=== PATIENT | male | born 1950 | race Two or more races ===

== ENCOUNTER 2017-07-06 12:33 | Outpatient (CLI) | payer OTHER | END 2017-07-06 12:40 | disposition home or self-care (01) | LOC: RAD 12:33 | DX: M25.551 Pain in right hip (principal); M25.552 Pain in left hip ==

== ENCOUNTER → 2017-07-19 | Outpatient (CLI) | payer OTHER ==
[~2017-07-19] VITALS: Ht 177.8 cm; Wt 74.8 kg
[~2017-07-19] MED LIST: DICLOFENAC POTA50 MG PO; DIOVAN160 M1 PO
== END | disposition home or self-care (01) ==
LOC: LAB 06:00 → SURH 07-25 09:15 → EDSTATUS 07-25 09:15
DX: R07.89 Other chest pain (principal); D68.8 Other specified coagulation defects; E78.2 Mixed hyperlipidemia; N39.0 Urinary tract infection, site not specified; I10 Essential (primary) hypertension; Z01.810 Encounter for preprocedural cardiovascular examination; Z01.812 Encounter for preprocedural laboratory examination

== ENCOUNTER 2017-07-20 11:30 | Outpatient (CLI) | payer OTHER ==
[~2017-07-20 11:30] MED LIST changes: -DICLOFENAC POTA50 MG PO
[2017-07-21] MEDS ORDERED: DICLOFENAC POTA50 MG PO (07:54)
== END 2017-07-20 11:35 | disposition home or self-care (01) ==
LOC: LAB 11:30
DX: D68.8 Other specified coagulation defects (principal); D64.89 Other specified anemias

== ENCOUNTER 2017-07-20 15:31 | Inpatient (IN) | payer OTHER ==
[~2017-07-20] VITALS: Ht 177.8 cm; Wt 74.8 kg
[2017-07-21] MEDS ORDERED: DICLOFENAC POTA50 MG PO (07:54)
== END 2017-07-28 14:37 | disposition home or self-care (01) | DRG 375 ==
LOC: ER 15:31 → MEDJ 18:28 → SEC-K 18:28 → MEDJ 23:47
PROC: 30233N1 Transfusion of Nonautologous Red Blood Cells into Peripheral Vein, Percutaneous Approach (ICD-10-PCS; 2017-07-20)
PROC: B246ZZZ Ultrasonography of Right and Left Heart (ICD-10-PCS; 2017-07-24)
PROC: 0DB98ZX Excision of Duodenum, Via Natural or Artificial Opening Endoscopic, Diagnostic (ICD-10-PCS; principal; 2017-07-25)
PROC: 0DB68ZX Excision of Stomach, Via Natural or Artificial Opening Endoscopic, Diagnostic (ICD-10-PCS; 2017-07-25)
PROC: 0DBP8ZX Excision of Rectum, Via Natural or Artificial Opening Endoscopic, Diagnostic (ICD-10-PCS; 2017-07-26)
PROC: 0DBL8ZX Excision of Transverse Colon, Via Natural or Artificial Opening Endoscopic, Diagnostic (ICD-10-PCS; 2017-07-26)
PROC: 0DBN8ZX Excision of Sigmoid Colon, Via Natural or Artificial Opening Endoscopic, Diagnostic (ICD-10-PCS; 2017-07-26)
PROC: 0DBK8ZX Excision of Ascending Colon, Via Natural or Artificial Opening Endoscopic, Diagnostic (ICD-10-PCS; 2017-07-26)
PROC: 0W3P8ZZ Control Bleeding in Gastrointestinal Tract, Via Natural or Artificial Opening Endoscopic (ICD-10-PCS; 2017-07-26)
PROC: BW28Y0Z Computerized Tomography (CT Scan) of Head using Other Contrast, Unenhanced and Enhanced (ICD-10-PCS; 2017-07-26)
PROC: BW25Y0Z Computerized Tomography (CT Scan) of Chest, Abdomen and Pelvis using Other Contrast, Unenhanced and Enhanced (ICD-10-PCS; 2017-07-26)
DX: C18.4 Malignant neoplasm of transverse colon (principal); K92.2 Gastrointestinal hemorrhage, unspecified; D50.0 Iron deficiency anemia secondary to blood loss (chronic); R55 Syncope and collapse; I50.83 High output heart failure; I10 Essential (primary) hypertension; E78.4 Other hyperlipidemia; G31.89 Other specified degenerative diseases of nervous system; K63.5 Polyp of colon

== ENCOUNTER 2017-08-23 16:01 | Inpatient (IN) | payer OTHER ==
[~2017-08-23] VITALS: Ht 167.6 cm; Wt 68.0 kg
[~2017-08-23 16:01] MED LIST changes: +DICLOFENAC POTA50 MG PO
== END 2017-09-04 19:58 | disposition home or self-care (01) | DRG 330 ==
LOC: SURH 08-29 05:30 → O/R 08-29 05:30 → SURH 08-29 13:55 → O/R 08-29 16:00 → SURH 09-04 19:58
PROVIDERS: Colon & Rectal Surgery
PROC: 0DTP4ZZ Resection of Rectum, Percutaneous Endoscopic Approach (ICD-10-PCS; 2017-08-29)
PROC: 07TC4ZZ Resection of Pelvis Lymphatic, Percutaneous Endoscopic Approach (ICD-10-PCS; 2017-08-29)
PROC: 0DBU4ZZ Excision of Omentum, Percutaneous Endoscopic Approach (ICD-10-PCS; 2017-08-29)
PROC: 0DTE4ZZ Resection of Large Intestine, Percutaneous Endoscopic Approach (ICD-10-PCS; principal; 2017-08-29 10:00)
PROC: 3E0F7GC Introduction of Other Therapeutic Substance into Respiratory Tract, Via Natural or Artificial Opening (ICD-10-PCS; 2017-08-31)
PROC: 4A033R1 Measurement of Arterial Saturation, Peripheral, Percutaneous Approach (ICD-10-PCS; 2017-09-01)
DX: C18.4 Malignant neoplasm of transverse colon (principal); J95.89 Other postprocedural complications and disorders of respiratory system, not elsewhere classified; J98.11 Atelectasis; B37.0 Candidal stomatitis; J45.31 Mild persistent asthma with (acute) exacerbation; D62 Acute posthemorrhagic anemia; I10 Essential (primary) hypertension; E78.4 Other hyperlipidemia

== ENCOUNTER 2017-09-19 10:07 | Outpatient (CLI) | payer OTHER | END 2017-09-19 10:19 | disposition home or self-care (01) | LOC: NUCLEAR 10:07 | DX: C19 Malignant neoplasm of rectosigmoid junction (principal); Z86.010 Personal history of colon polyps; D50.0 Iron deficiency anemia secondary to blood loss (chronic) | CPT/HCPCS: 78816; A9552 ==

== ENCOUNTER → 2017-09-27 16:37 | Outpatient (CLI) | payer OTHER | END | disposition home or self-care (01) | LOC: LAB 16:37 | DX: C19 Malignant neoplasm of rectosigmoid junction (principal); Z86.010 Personal history of colon polyps; D50.0 Iron deficiency anemia secondary to blood loss (chronic) ==

== ENCOUNTER 2017-10-31 08:01 | Outpatient (CLI) | payer OTHER | END 2017-10-31 08:56 | disposition home or self-care (01) | LOC: RAD 08:01 | DX: C19 Malignant neoplasm of rectosigmoid junction (principal); Z86.010 Personal history of colon polyps; D50.0 Iron deficiency anemia secondary to blood loss (chronic); R91.8 Other nonspecific abnormal finding of lung field; R97.8 Other abnormal tumor markers; R79.89 Other specified abnormal findings of blood chemistry; D51.8 Other vitamin B12 deficiency anemias; R94.5 Abnormal results of liver function studies ==

== ENCOUNTER 2017-11-14 10:48 | Outpatient (CLI) | payer OTHER ==
[2017-11-14] MEDS ORDERED: IMODIUM A-D2 MG PO (15:00)
[2017-11-14] MEDS ORDERED: INTEGRA PLUS C1 EACH PO (15:00)
== END 2017-11-14 10:54 | disposition home or self-care (01) ==
LOC: EKG 10:48
DX: C19 Malignant neoplasm of rectosigmoid junction (principal); Z01.810 Encounter for preprocedural cardiovascular examination

== ENCOUNTER → 2017-11-17 | Day surgery (SDC) | payer OTHER ==
[~2017-11-17] MED LIST changes: +IMODIUM A-D2 MG PO; +INTEGRA PLUS C1 EACH PO
== END | disposition home or self-care (01) ==
LOC: CIR.AMB 05:57
DX: C20 Malignant neoplasm of rectum (principal)
CPT/HCPCS: 36561; C1751

== ENCOUNTER → 2018-06-29 | Outpatient (CLI) | payer OTHER | END | disposition home or self-care (01) | LOC: NUCLEAR 08:04 | DX: Z08 Encounter for follow-up examination after completed treatment for malignant neoplasm (principal); C19 Malignant neoplasm of rectosigmoid junction; Z86.010 Personal history of colon polyps; D50.0 Iron deficiency anemia secondary to blood loss (chronic); R91.8 Other nonspecific abnormal finding of lung field | CPT/HCPCS: 78815; A9552 ==

== ENCOUNTER 2018-09-11 10:51 | Emergency (ER) | payer OTHER ==
[~2018-09-11] VITALS: Ht 175.3 cm; Wt 68.9 kg
[2018-09-11] MEDS ORDERED: LOPRESSOR25 MG (11:03)
[2018-09-11] MEDS ORDERED: FUSION PLUS CA1 EACH (11:04)
== END 2018-09-11 19:32 | disposition home or self-care (01) ==
LOC: ER 10:51
DX: N39.0 Urinary tract infection, site not specified (principal); R31.0 Gross hematuria

== ENCOUNTER 2018-10-24 08:58 | Outpatient (CLI) | payer OTHER ==
[~2018-10-24 08:58] MED LIST changes: +FUSION PLUS CA1 EACH; +LOPRESSOR25 MG
== END 2018-10-24 09:05 | disposition home or self-care (01) ==
LOC: TOM 08:58
DX: C19 Malignant neoplasm of rectosigmoid junction (principal); Z86.010 Personal history of colon polyps; D50.0 Iron deficiency anemia secondary to blood loss (chronic); R91.8 Other nonspecific abnormal finding of lung field
CPT/HCPCS: 71260; 74178; Q9965

== ENCOUNTER → 2019-06-04 | Outpatient (CLI) | payer OTHER | END | disposition home or self-care (01) | LOC: TOM 08:11 | DX: C19 Malignant neoplasm of rectosigmoid junction (principal); D50.0 Iron deficiency anemia secondary to blood loss (chronic); R91.8 Other nonspecific abnormal finding of lung field; Z86.010 Personal history of colon polyps | CPT/HCPCS: 71260; 74177; Q9965 ==

== ENCOUNTER → 2019-08-29 | Outpatient (CLI) | payer OTHER | END | disposition home or self-care (01) | LOC: MRI 10:01 | DX: C19 Malignant neoplasm of rectosigmoid junction (principal) | CPT/HCPCS: 72197; A9575 ==

== ENCOUNTER 2021-02-26 07:48 | Outpatient (CLI) | payer OTHER | END 2021-02-26 08:11 | disposition home or self-care (01) | LOC: MRI 07:48 | PROVIDERS: ATTEND Internal Medicine Hematology & Oncology | DX: R10.84 Generalized abdominal pain (principal); C19 Malignant neoplasm of rectosigmoid junction; C78.01 Secondary malignant neoplasm of right lung; R97.0 Elevated carcinoembryonic antigen [CEA]; D50.0 Iron deficiency anemia secondary to blood loss (chronic); R91.8 Other nonspecific abnormal finding of lung field | CPT/HCPCS: 74183; A9575; 74182 ==

== ENCOUNTER 2023-06-28 14:11 | Inpatient (IN) | payer OTHER ==
[~2023-06-28] VITALS: Ht 175.3 cm; Wt 59.0 kg
[~2023-06-28 14:11] MED LIST changes: +ACETAMINOPHEN650 M2 PO; +CIPRO500 MG PO; +DIOVAN HCT 80-11 TAB PO; +INTEGRA CAPSUL1 EACH; +INTESTINEX680 M1 PO; +LEVSIN0.125 MG PO; +LIPITOR20 MG; +METRONIDAZOLE500 MG PO; +OMEPRAZOLE40 MG; +PEPCID AC20 MG PO; +QUESTRAN LIGHT210 GM; +TOPROL XL25 M1; +TRAMADOL HCL50 MG PO
[2023-06-28 16:13] LABS: BILIRUBIN TOTAL 0.35 mg/dL (0.3-1.2); BILIRUBIN,CONJUGATED 0.14 mg/dL (0.0-0.2); BILIRUBIN,UNCONJUGATED 0.21 mg/dL (0.0-0.6); CALCIUM 8.6 mg/dL (8.5-10.1); CREATININE SERUM 0.58 mg/dL (0.70-1.30); GFR 137.33; POTASSIUM 4.25 mEq/L (3.5-5.1); TOTAL PROTEIN 6.1 gm/dL (6.4-8.2)
[2023-06-28 16:18] LABS: HEMATOCRIT 23.7 % (39.0-48.0); MEAN CELL VOLUME 81.9 fL (80.0-100.00); MEAN CORPUSCULAR HGB CONC 32.3 g/dl (32.0-36.0); PLATELET COUNT 434 K/uL (150-450); RED CELL DISTRIBUTION WIDTH 17.8 % (11.5-14.5)
[2023-06-28 16:20] LABS: MEAN CORPUSCULAR HEMOGLOBIN 26.5 pg (27.00-32.0)
[2023-06-28 16:22] LABS: HEMOGLOBIN 7.7 g/dL (13-16.00)
[2023-06-28 22:40] LABS: D DIMER 10.67 MG/L
[2023-06-28 23:08] LABS: PH,URINE 6.5 (5.0-8.0); URINE APPEARANCE Clear; URINE BILIRRUBIN Negative (NEGATIVE); URINE BLOOD Negative; URINE COLOR Yellow; URINE GLUCOSE Negative (NEGATIVE); URINE LEUKOCYTE Negative; URINE NITRATE Negative; URINE PROTEIN Negative (NEGATIVE); URINE UROBILINOGEN 0.2 E.U./dl
[2023-06-28 23:11] LABS: URINE BACTERIA 110.8 uL (0.0-1933); URINE EPITHELIAL CELLS 6.7 uL (0.0-38.8); URINE RBC 9.6 uL (0.0-20.8); URINE WBC 17.1 uL (0.0-23.2)
[2023-06-29 08:02] LABS: ob POSITIVE (NEGATIVE)
[2023-06-30 07:07] LABS: HEMATOCRIT 32.3 % (39.0-48.0); HEMOGLOBIN 10.7 g/dL (13-16.00); MEAN CELL VOLUME 82.5 fL (80.0-100.00); MEAN CORPUSCULAR HEMOGLOBIN 27.5 pg (27.00-32.0); MEAN CORPUSCULAR HGB CONC 33.3 g/dl (32.0-36.0); PLATELET COUNT 433 K/uL (150-450); RED BLOOD COUNT 3.91 M/uL (4.00-6.00); RED CELL DISTRIBUTION WIDTH 16.6 % (11.5-14.5)
[2023-06-30 07:25] LABS: ALBUMIN 2.2 gm/dL (3.4-5.0); BILIRUBIN TOTAL 0.6 mg/dL (0.3-1.2); CALCIUM 8.4 mg/dL (8.5-10.1); CREATININE SERUM 0.54 mg/dL (0.70-1.30); GFR 149.14; GLOBULINA 3.9 G/DL (2.4-3.5); POTASSIUM 3.07 mEq/L (3.5-5.1); TOTAL PROTEIN 6.1 gm/dL (6.4-8.2)
[2023-07-01 12:04] LABS: CA 125 83.5 U/mL (Not Estab.); CA 19-9 < 2 U/mL (0-35)
[2023-07-02 07:09] LABS: BILIRUBIN TOTAL 0.36 mg/dL (0.3-1.2); CALCIUM 8.3 mg/dL (8.5-10.1); CREATININE SERUM 0.42 mg/dL (0.70-1.30); GFR 199.32; GLOBULINA 3.1 G/DL (2.4-3.5); MAGNESIUM 1.8 mg/dL (1.8-2.4); POTASSIUM 4.02 mEq/L (3.5-5.1); TOTAL PROTEIN 5.1 gm/dL (6.4-8.2)
[2023-07-02 07:48] LABS: HEMATOCRIT 28.6 % (39.0-48.0); HEMOGLOBIN 9.4 g/dL (13-16.00); MEAN CELL VOLUME 83.9 fL (80.0-100.00); MEAN CORPUSCULAR HEMOGLOBIN 27.7 pg (27.00-32.0); PLATELET COUNT 410 K/uL (150-450); RED BLOOD COUNT 3.41 M/uL (4.00-6.00); RED CELL DISTRIBUTION WIDTH 16.8 % (11.5-14.5)
[2023-07-03 06:53] LABS: HEMATOCRIT 26.5 % (39.0-48.0); MEAN CELL VOLUME 87.9 fL (80.0-100.00); MEAN CORPUSCULAR HEMOGLOBIN 28.2 pg (27.00-32.0); MEAN CORPUSCULAR HGB CONC 32.1 g/dl (32.0-36.0); PLATELET COUNT 386 K/uL (150-450); RED BLOOD COUNT 3.01 M/uL (4.00-6.00); RED CELL DISTRIBUTION WIDTH 17.5 % (11.5-14.5)
[2023-07-03 07:14] LABS: ALBUMIN 1.8 gm/dL (3.4-5.0); BILIRUBIN TOTAL 0.4 mg/dL (0.3-1.2); BILIRUBIN,CONJUGATED 0.17 mg/dL (0.0-0.2); BILIRUBIN,UNCONJUGATED 0.23 mg/dL (0.0-0.6); CALCIUM 8.3 mg/dL (8.5-10.1); CHOL HDL RATIO 5.8 (0-5.0); CREATININE SERUM 0.5 mg/dL (0.70-1.30); GFR 162.99; GLOBULINA 2.6 G/DL (2.4-3.5); PHOSPHOROUS 5.3 mg/dL (2.5-4.9); POTASSIUM 5.27 mEq/L (3.5-5.1); TOTAL PROTEIN 4.4 gm/dL (6.4-8.2)
[2023-07-03 07:28] LABS: HEMOGLOBIN 8.5 g/dL (13-16.00)
[2023-07-03 07:31] LABS: INR 1.1; PARTIAL THROMBOPLASTIN TIME 29.3 SECONDS (22.0-34.0); PROTHROMBIN TIME 11.5 SECONDS (9.0-11.5)
[2023-07-03 10:37] LABS: BILIRUBIN TOTAL 0.53 mg/dL (0.3-1.2); CALCIUM 8.1 mg/dL (8.5-10.1); CREATININE SERUM 0.48 mg/dL (0.70-1.30); GFR 170.85; GLOBULINA 2.9 G/DL (2.4-3.5); POTASSIUM 4.13 mEq/L (3.5-5.1); TOTAL PROTEIN 4.9 gm/dL (6.4-8.2)
[2023-07-03 14:59] LABS: UREA CLEARANCE 27.7 ML/MIN
[2023-07-03 15:43] LABS: ob POSITIVE (NEGATIVE)
[2023-07-04 12:10] LABS: HEMATOCRIT 33.6 % (39.0-48.0); HEMOGLOBIN 11.5 g/dL (13-16.00); MEAN CORPUSCULAR HEMOGLOBIN 28.6 pg (27.00-32.0); MEAN CORPUSCULAR HGB CONC 34.1 g/dl (32.0-36.0); PLATELET COUNT 363 K/uL (150-450); RED CELL DISTRIBUTION WIDTH 16.3 % (11.5-14.5)
[2023-07-05 06:47] LABS: HEMATOCRIT 36.1 % (39.0-48.0); MEAN CELL VOLUME 84.8 fL (80.0-100.00); MEAN CORPUSCULAR HGB CONC 33.1 g/dl (32.0-36.0); PLATELET COUNT 378 K/uL (150-450); RED BLOOD COUNT 4.26 M/uL (4.00-6.00); RED CELL DISTRIBUTION WIDTH 16.8 % (11.5-14.5)
[2023-07-05 07:24] LABS: ALBUMIN 2.3 gm/dL (3.4-5.0); BILIRUBIN TOTAL 0.75 mg/dL (0.3-1.2); CALCIUM 8.6 mg/dL (8.5-10.1); CREATININE SERUM 0.55 mg/dL (0.70-1.30); GFR 146.02; MAGNESIUM 1.9 mg/dL (1.8-2.4); POTASSIUM 4.09 mEq/L (3.5-5.1); TOTAL PROTEIN 5.3 gm/dL (6.4-8.2)
[2023-07-06 14:11] LABS: HEMATOCRIT 37.8 % (39.0-48.0); HEMOGLOBIN 12.6 g/dL (13-16.00); MEAN CELL VOLUME 85.7 fL (80.0-100.00); MEAN CORPUSCULAR HEMOGLOBIN 28.5 pg (27.00-32.0); MEAN CORPUSCULAR HGB CONC 33.2 g/dl (32.0-36.0); PLATELET COUNT 428 K/uL (150-450); RED BLOOD COUNT 4.41 M/uL (4.00-6.00)
[2023-07-07 06:19] LABS: HEMATOCRIT 39.4 % (39.0-48.0); MEAN CELL VOLUME 84.3 fL (80.0-100.00); MEAN CORPUSCULAR HEMOGLOBIN 27.9 pg (27.00-32.0); MEAN CORPUSCULAR HGB CONC 33.1 g/dl (32.0-36.0); PLATELET COUNT 431 K/uL (150-450); RED BLOOD COUNT 4.67 M/uL (4.00-6.00); RED CELL DISTRIBUTION WIDTH 16.9 % (11.5-14.5)
[2023-07-09 11:43] LABS: HEMATOCRIT 37.6 % (39.0-48.0); HEMOGLOBIN 12.3 g/dL (13-16.00); MEAN CORPUSCULAR HEMOGLOBIN 28.1 pg (27.00-32.0); MEAN CORPUSCULAR HGB CONC 32.7 g/dl (32.0-36.0); PLATELET COUNT 370 K/uL (150-450); RED BLOOD COUNT 4.37 M/uL (4.00-6.00)
[2023-07-10 07:45] LABS: HEMOGLOBIN 11.1 g/dL (13-16.00); MEAN CELL VOLUME 85.6 fL (80.0-100.00); MEAN CORPUSCULAR HEMOGLOBIN 27.9 pg (27.00-32.0); MEAN CORPUSCULAR HGB CONC 32.6 g/dl (32.0-36.0); PLATELET COUNT 347 K/uL (150-450); RED BLOOD COUNT 3.97 M/uL (4.00-6.00); RED CELL DISTRIBUTION WIDTH 16.4 % (11.5-14.5)
[2023-07-10 08:35] LABS: ALBUMIN 2.6 gm/dL (3.4-5.0); ALKALINE PHOSPHATASE 125 U/L (50-136); ALT/SGPT 19 U/L (12-78); ANION GAP 10 (10.0-20.0); AST/SGOT 19 U/L (15-37); BILIRUBIN TOTAL 0.36 mg/dL (0.3-1.2); BILIRUBIN,CONJUGATED < 0.10 mg/dL (0.0-0.2); BILIRUBIN,UNCONJUGATED 0.26 mg/dL (0.0-0.6); BLOOD UREA NITROGEN 13 mg/dL (7-18); BUN CREA RATIO 19 (7.0-25.0); CALCIUM 8.9 mg/dL (8.5-10.1); CARBON DIOXIDE 31 mEq/L (21-32); CHLORIDE 102 mmol/L (98-107); CHOL HDL RATIO 4.6 (0-5.0); CHOLESTEROL 166 mg/dL (0-200); CREATININE SERUM 0.69 mg/dL (0.70-1.30); GFR 112.39; GLOBULINA 3.3 G/DL (2.4-3.5); GLUCOSE FASTING 102 mg/dL (65-100); HDL 36 mg/dl (40-60); LDL 93 mg/dl (0-130); OSMOLALITY SERUM 276 MOSM/KG (275-295); POTASSIUM 4.56 mEq/L (3.5-5.1); SODIUM 138 mmol/L (136-145); TOTAL PROTEIN 5.9 gm/dL (6.4-8.2); TRIGLYCERIDES 186 mg/dL (0-150); VLDL 37 (0-39)
[2023-07-10 09:03] LABS: INR 1.04; PARTIAL THROMBOPLASTIN TIME 29.9 SECONDS (22.0-34.0); PROTHROMBIN TIME 10.9 SECONDS (9.0-11.5)
[2023-07-10 09:17] LABS: HEMATOCRIT 39.6 % (39.0-48.0); MEAN CELL VOLUME 86.2 fL (80.0-100.00); MEAN CORPUSCULAR HGB CONC 32.4 g/dl (32.0-36.0); PLATELET COUNT 372 K/uL (150-450); RED CELL DISTRIBUTION WIDTH 16.5 % (11.5-14.5)
[2023-07-10 09:25] LABS: HEMOGLOBIN 12.8 g/dL (13-16.00); MEAN CORPUSCULAR HEMOGLOBIN 27.8 pg (27.00-32.0)
[2023-07-11 06:53] LABS: HEMATOCRIT 34.7 % (39.0-48.0); HEMOGLOBIN 11.5 g/dL (13-16.00); MEAN CELL VOLUME 84.1 fL (80.0-100.00); MEAN CORPUSCULAR HEMOGLOBIN 27.9 pg (27.00-32.0); MEAN CORPUSCULAR HGB CONC 33.1 g/dl (32.0-36.0); PLATELET COUNT 315 K/uL (150-450); RED BLOOD COUNT 4.12 M/uL (4.00-6.00); RED CELL DISTRIBUTION WIDTH 16.7 % (11.5-14.5)
[2023-07-12 07:17] LABS: HEMATOCRIT 33.4 % (39.0-48.0); MEAN CELL VOLUME 85.5 fL (80.0-100.00); MEAN CORPUSCULAR HEMOGLOBIN 28.2 pg (27.00-32.0); PLATELET COUNT 278 K/uL (150-450); RED CELL DISTRIBUTION WIDTH 16.6 % (11.5-14.5)
[2023-07-13 06:52] LABS: HEMOGLOBIN 10.8 g/dL (13-16.00); MEAN CELL VOLUME 84.3 fL (80.0-100.00); MEAN CORPUSCULAR HEMOGLOBIN 27.5 pg (27.00-32.0); MEAN CORPUSCULAR HGB CONC 32.6 g/dl (32.0-36.0); PLATELET COUNT 256 K/uL (150-450); RED BLOOD COUNT 3.92 M/uL (4.00-6.00); RED CELL DISTRIBUTION WIDTH 16.6 % (11.5-14.5)
[2023-07-13 07:34] LABS: ALBUMIN 2.2 gm/dL (3.4-5.0); CALCIUM 8.4 mg/dL (8.5-10.1); CREATININE SERUM 0.53 mg/dL (0.70-1.30); GFR 152.39; MAGNESIUM 1.9 mg/dL (1.8-2.4); PHOSPHOROUS 3.4 mg/dL (2.5-4.9); POTASSIUM 4.46 mEq/L (3.5-5.1)
[2023-07-13 09:09] LABS: HEMOGLOBIN 10.8 g/dL (13-16.00); MEAN CELL VOLUME 85.9 fL (80.0-100.00); MEAN CORPUSCULAR HEMOGLOBIN 28.1 pg (27.00-32.0); MEAN CORPUSCULAR HGB CONC 32.7 g/dl (32.0-36.0); PLATELET COUNT 255 K/uL (150-450); RED BLOOD COUNT 3.85 M/uL (4.00-6.00); RED CELL DISTRIBUTION WIDTH 16.8 % (11.5-14.5)
[2023-07-14 08:56] LABS: HEMOGLOBIN 10.2 g/dL (13-16.00); MEAN CORPUSCULAR HEMOGLOBIN 27.6 pg (27.00-32.0); MEAN CORPUSCULAR HGB CONC 32.8 g/dl (32.0-36.0); PLATELET COUNT 242 K/uL (150-450); RED BLOOD COUNT 3.69 M/uL (4.00-6.00); RED CELL DISTRIBUTION WIDTH 16.9 % (11.5-14.5)
[2023-07-14 09:23] LABS: ALBUMIN 2.2 gm/dL (3.4-5.0); BILIRUBIN TOTAL 0.33 mg/dL (0.3-1.2); CALCIUM 8.2 mg/dL (8.5-10.1); CREATININE SERUM 0.53 mg/dL (0.70-1.30); GFR 152.39; MAGNESIUM 1.8 mg/dL (1.8-2.4); POTASSIUM 4.13 mEq/L (3.5-5.1); TOTAL PROTEIN 5.2 gm/dL (6.4-8.2)
[2023-07-15 13:30] LABS: HEMATOCRIT 32.6 % (39.0-48.0); HEMOGLOBIN 10.5 g/dL (13-16.00); MEAN CELL VOLUME 85.5 fL (80.0-100.00); MEAN CORPUSCULAR HEMOGLOBIN 27.6 pg (27.00-32.0); MEAN CORPUSCULAR HGB CONC 32.3 g/dl (32.0-36.0); PLATELET COUNT 254 K/uL (150-450); RED BLOOD COUNT 3.81 M/uL (4.00-6.00); RED CELL DISTRIBUTION WIDTH 16.6 % (11.5-14.5)
[2023-07-16 14:25] LABS: MEAN CELL VOLUME 85.8 fL (80.0-100.00); MEAN CORPUSCULAR HGB CONC 32.8 g/dl (32.0-36.0); PLATELET COUNT 186 K/uL (150-450); RED BLOOD COUNT 2.64 M/uL (4.00-6.00); RED CELL DISTRIBUTION WIDTH 16.1 % (11.5-14.5)
[2023-07-16 14:31] LABS: HEMATOCRIT 22.6 % (39.0-48.0); HEMOGLOBIN 7.4 g/dL (13-16.00)
[2023-07-17 10:45] LABS: HEMATOCRIT 36.7 % (39.0-48.0); HEMOGLOBIN 12.2 g/dL (13-16.00); MEAN CORPUSCULAR HEMOGLOBIN 27.5 pg (27.00-32.0); MEAN CORPUSCULAR HGB CONC 33.2 g/dl (32.0-36.0); PLATELET COUNT 257 K/uL (150-450); RED BLOOD COUNT 4.42 M/uL (4.00-6.00)
[2023-07-18 13:42] LABS: HEMATOCRIT 39.3 % (39.0-48.0); MEAN CELL VOLUME 83.9 fL (80.0-100.00); MEAN CORPUSCULAR HEMOGLOBIN 27.8 pg (27.00-32.0); MEAN CORPUSCULAR HGB CONC 33.2 g/dl (32.0-36.0); PLATELET COUNT 278 K/uL (150-450); RED BLOOD COUNT 4.68 M/uL (4.00-6.00); RED CELL DISTRIBUTION WIDTH 16.9 % (11.5-14.5)
[2023-07-18 14:18] LABS: ALBUMIN 2.5 gm/dL (3.4-5.0); BILIRUBIN TOTAL 0.51 mg/dL (0.3-1.2); CALCIUM 9.2 mg/dL (8.5-10.1); CREATININE SERUM 0.62 mg/dL (0.70-1.30); GFR 127.16; GLOBULINA 3.6 G/DL (2.4-3.5); MAGNESIUM 1.6 mg/dL (1.8-2.4); PHOSPHOROUS 2.9 mg/dL (2.5-4.9); POTASSIUM 3.77 mEq/L (3.5-5.1); TOTAL PROTEIN 6.1 gm/dL (6.4-8.2)
[2023-07-19 07:42] LABS: HEMATOCRIT 37.1 % (39.0-48.0); HEMOGLOBIN 12.2 g/dL (13-16.00); MEAN CELL VOLUME 82.8 fL (80.0-100.00); MEAN CORPUSCULAR HEMOGLOBIN 27.2 pg (27.00-32.0); MEAN CORPUSCULAR HGB CONC 32.9 g/dl (32.0-36.0); PLATELET COUNT 271 K/uL (150-450); RED BLOOD COUNT 4.48 M/uL (4.00-6.00); RED CELL DISTRIBUTION WIDTH 16.6 % (11.5-14.5)
[2023-07-19] MEDS ORDERED: PROTEINEX-18 LI30 ML PO (09:21)
[2023-07-19] MEDS ORDERED: SIMETHICONE125 M1 PO (09:22)
[2023-07-19] MEDS ORDERED: INTESTINEX680 M1 PO (09:22)
[2023-07-19] MEDS ORDERED: GABAPENTIN300 MG PO (09:24)
[2023-07-19] MEDS ORDERED: THORAZINE25 MG PO (09:24)
[2023-07-19] MEDS ORDERED: LIPITOR20 MG PO (09:25)
[2023-07-19] MEDS ORDERED: FUSION PLUS CA1 EACH PO (09:26)
[2023-07-19] MEDS ORDERED: B Complex PO (09:27)
[2023-07-19] MEDS ORDERED: Neurin-Sl Tablet Sl SL (09:27)
[2023-07-19] MEDS ORDERED: TOPROL XL25 M1 PO (09:27)
[2023-07-19] MEDS ORDERED: ZOLPIDEM TARTRAT5 MG PO (09:27)
[2023-07-20 07:34] LABS: HEMATOCRIT 37.4 % (39.0-48.0); HEMOGLOBIN 12.3 g/dL (13-16.00); MEAN CELL VOLUME 84.8 fL (80.0-100.00); MEAN CORPUSCULAR HEMOGLOBIN 27.9 pg (27.00-32.0); PLATELET COUNT 289 K/uL (150-450); RED BLOOD COUNT 4.42 M/uL (4.00-6.00); RED CELL DISTRIBUTION WIDTH 17.1 % (11.5-14.5)
[2023-07-20] MEDS ORDERED: TOPROL XL25 M1 PO (07:51)
[2023-07-20 12:21] LABS: MEAN CELL VOLUME 83.6 fL (80.0-100.00); PLATELET COUNT 199 K/uL (150-450); RED BLOOD COUNT 3.47 M/uL (4.00-6.00); RED CELL DISTRIBUTION WIDTH 16.7 % (11.5-14.5)
[2023-07-20 12:25] LABS: HEMOGLOBIN 9.6 g/dL (13-16.00); MEAN CORPUSCULAR HEMOGLOBIN 27.6 pg (27.00-32.0)
== END 2023-07-20 18:44 | disposition home or self-care (01) | DRG 336 ==
LOC: ICU-2 → ER 14:11 → SURH 19:25 → ICU-2 19:25 → SURH 19:25 → ICU 06-30 21:53 → SURH 07-05 12:09
PROVIDERS: Colon & Rectal Surgery; General Practice; Internal Medicine; Student in an Organized Health Care Education/Training Program; ADMIT Internal Medicine; ATTEND Internal Medicine
PROC: BW21YZZ Computerized Tomography (CT Scan) of Abdomen and Pelvis using Other Contrast (ICD-10-PCS; 2023-06-28)
PROC: BB24ZZZ Computerized Tomography (CT Scan) of Bilateral Lungs (ICD-10-PCS; 2023-06-28)
PROC: 02HV33Z Insertion of Infusion Device into Superior Vena Cava, Percutaneous Approach (ICD-10-PCS; 2023-06-29)
PROC: 3E0F7GC Introduction of Other Therapeutic Substance into Respiratory Tract, Via Natural or Artificial Opening (ICD-10-PCS; 2023-06-29)
PROC: 30233N1 Transfusion of Nonautologous Red Blood Cells into Peripheral Vein, Percutaneous Approach (ICD-10-PCS; 2023-06-29)
PROC: B246ZZZ Ultrasonography of Right and Left Heart (ICD-10-PCS; 2023-06-30)
PROC: CD271ZZ Tomographic (Tomo) Nuclear Medicine Imaging of Gastrointestinal Tract using Technetium 99m (Tc-99m) (ICD-10-PCS; 2023-07-04)
PROC: BW21ZZZ Computerized Tomography (CT Scan) of Abdomen and Pelvis (ICD-10-PCS; 2023-07-05)
PROC: 4A12X4Z Monitoring of Cardiac Electrical Activity, External Approach (ICD-10-PCS; 2023-07-05)
PROC: 0DB78ZX Excision of Stomach, Pylorus, Via Natural or Artificial Opening Endoscopic, Diagnostic (ICD-10-PCS; 2023-07-06)
PROC: 0DBW4ZZ Excision of Peritoneum, Percutaneous Endoscopic Approach (ICD-10-PCS; 2023-07-12)
PROC: 0DNW4ZZ Release Peritoneum, Percutaneous Endoscopic Approach (ICD-10-PCS; principal; 2023-07-12 11:00)
DX: K65.1 Peritoneal abscess (principal); J90 Pleural effusion, not elsewhere classified; K92.1 Melena; K56.609 Unspecified intestinal obstruction, unspecified as to partial versus complete obstruction; M46.58 Other infective spondylopathies, sacral and sacrococcygeal region; D63.8 Anemia in other chronic diseases classified elsewhere; I10 Essential (primary) hypertension; R00.0 Tachycardia, unspecified

== ENCOUNTER 2023-08-10 08:54 | Outpatient (CLI) | payer OTHER ==
[~2023-08-10 08:54] MED LIST changes: +B Complex PO; +FUSION PLUS CA1 EACH PO; +GABAPENTIN300 MG PO; +LIPITOR20 MG PO; +Neurin-Sl Tablet Sl SL; +PROTEINEX-18 LI30 ML PO; +SIMETHICONE125 M1 PO; +THORAZINE25 MG PO; +TOPROL XL25 M1 PO; +ZOLPIDEM TARTRAT5 MG PO
[2023-08-10 09:58] LABS: HEMATOCRIT 39.2 % (39.0-48.0); MEAN CELL VOLUME 85.4 fL (80.0-100.00); MEAN CORPUSCULAR HEMOGLOBIN 28.2 pg (27.00-32.0); MEAN CORPUSCULAR HGB CONC 33.1 g/dl (32.0-36.0); PLATELET COUNT 298 K/uL (150-450); RED BLOOD COUNT 4.59 M/uL (4.00-6.00); RED CELL DISTRIBUTION WIDTH 18.1 % (11.5-14.5)
[2023-08-10 10:16] LABS: ERYTHROCYTE SEDIMENTATION RATE 52 mm/hr
[2023-08-10 10:36] LABS: BILIRUBIN TOTAL 0.5 mg/dL (0.3-1.2); CALCIUM 9.4 mg/dL (8.5-10.1); CHOL HDL RATIO 3.3 (0-5.0); CREATININE SERUM 0.65 mg/dL (0.70-1.30); FREE TRIODOTIRONINE 1.91 pg/ml (2.18-3.98); GFR 120.41; GLOBULINA 4.4 G/DL (2.4-3.5); POTASSIUM 3.79 mEq/L (3.5-5.1); T4 TOTAL 8.87 UG/DL (4.5-12.1); TOTAL PROTEIN 7.4 gm/dL (6.4-8.2); TSH 2.53 uIU/mL (0.358-3.74)
[2023-08-10 10:43] LABS: C-REACTIVE PROTEIN 5.81 MG/DL (0.00-0.29)
[2023-08-10 14:02] LABS: URINE APPEARANCE Clear; URINE BILIRRUBIN Negative (NEGATIVE); URINE BLOOD Negative; URINE COLOR Yellow; URINE GLUCOSE Negative (NEGATIVE); URINE LEUKOCYTE Negative; URINE NITRATE Negative; URINE PROTEIN Negative (NEGATIVE); URINE UROBILINOGEN 0.2 E.U./dl
[2023-08-10 14:06] LABS: URINE BACTERIA 6.2 uL (0.0-1933); URINE EPITHELIAL CELLS 1.8 uL (0.0-38.8); URINE RBC 7.1 uL (0.0-20.8)
== END 2023-08-10 09:04 | disposition home or self-care (01) ==
LOC: LAB 08:54
PROVIDERS: ATTEND Internal Medicine
DX: I35.0 Nonrheumatic aortic (valve) stenosis (principal); E55.9 Vitamin D deficiency, unspecified; K90.821 Short bowel syndrome with colon in continuity; R73.9 Hyperglycemia, unspecified; E78.9 Disorder of lipoprotein metabolism, unspecified; E03.9 Hypothyroidism, unspecified; K29.70 Gastritis, unspecified, without bleeding

== ENCOUNTER 2023-08-10 09:03 | Outpatient (CLI) | payer OTHER | END 2023-08-10 09:15 | disposition home or self-care (01) | LOC: MRI 09:03 | PROVIDERS: ATTEND Internal Medicine | DX: K65.1 Peritoneal abscess (principal) | CPT/HCPCS: 72197; Q9965; 72196 ==

== ENCOUNTER 2023-08-11 12:51 | Outpatient (CLI) | payer OTHER ==
[2023-08-11 14:38] LABS: ob NEGATIVE (NEGATIVE)
== END 2023-08-11 12:52 | disposition home or self-care (01) ==
LOC: LAB 12:51
PROVIDERS: ATTEND Internal Medicine
DX: K29.70 Gastritis, unspecified, without bleeding (principal)

== ENCOUNTER 2023-08-16 09:36 | Outpatient (CLI) | payer OTHER ==
[2023-08-16 10:40] LABS: HEMATOCRIT 36.8 % (39.0-48.0); HEMOGLOBIN 12.1 g/dL (13-16.00); MEAN CELL VOLUME 84.6 fL (80.0-100.00); MEAN CORPUSCULAR HEMOGLOBIN 27.8 pg (27.00-32.0); MEAN CORPUSCULAR HGB CONC 32.9 g/dl (32.0-36.0); PLATELET COUNT 315 K/uL (150-450); RED BLOOD COUNT 4.35 M/uL (4.00-6.00); RED CELL DISTRIBUTION WIDTH 18.3 % (11.5-14.5)
[2023-08-16 10:46] LABS: ERYTHROCYTE SEDIMENTATION RATE 84 mm/hr
[2023-08-16 11:02] LABS: ALBUMIN 2.9 gm/dL (3.4-5.0); BILIRUBIN TOTAL 0.56 mg/dL (0.3-1.2); CALCIUM 8.8 mg/dL (8.5-10.1); CREATININE SERUM 0.74 mg/dL (0.70-1.30); GFR 103.68; GLOBULINA 3.7 G/DL (2.4-3.5); POTASSIUM 3.97 mEq/L (3.5-5.1); TOTAL PROTEIN 6.6 gm/dL (6.4-8.2)
[2023-08-16 11:03] LABS: C-REACTIVE PROTEIN 11.2 MG/DL (0.00-0.29)
== END 2023-08-16 11:08 | disposition home or self-care (01) ==
LOC: LAB 09:36
PROVIDERS: ATTEND Internal Medicine
DX: L02.31 Cutaneous abscess of buttock (principal)

== ENCOUNTER 2023-10-01 17:05 | Inpatient (IN) | payer OTHER ==
[~2023-10-01] VITALS: Ht 177.8 cm; Wt 61.2 kg
[2023-10-01] MEDS ORDERED: 0.9 % SODIUM CHLORIDE 1,000 ML IV STA (17:48)
[2023-10-01] MEDS ORDERED: CEFTRIAXONE SODIUM 2,000 MG VIAL IV ONE (18:00)
[2023-10-01 18:19] LABS: HEMATOCRIT 29.3 % (39.0-48.0); HEMOGLOBIN 9.7 g/dL (13-16.00); MEAN CELL VOLUME 89.8 fL (80.0-100.00); MEAN CORPUSCULAR HEMOGLOBIN 29.7 pg (27.00-32.0); PLATELET COUNT 295 K/uL (150-450); RED BLOOD COUNT 3.26 M/uL (4.00-6.00); RED CELL DISTRIBUTION WIDTH 19.3 % (11.5-14.5)
[2023-10-01 18:32] LABS: ALBUMIN 2.6 gm/dL (3.4-5.0); BILIRUBIN TOTAL 0.33 mg/dL (0.3-1.2); CALCIUM 8.4 mg/dL (8.5-10.1); CREATININE SERUM 0.87 mg/dL (0.70-1.30); GFR 86.01; GLOBULINA 3.5 G/DL (2.4-3.5); POTASSIUM 3.78 mEq/L (3.5-5.1); TOTAL PROTEIN 6.1 gm/dL (6.4-8.2)
[2023-10-01 18:39] LABS: ABG PH 7.395 (7.35-7.45); ABG PO2 96.7 mmHg (80-100); ABG pCO2 41.8 mmHg (35-45)
[2023-10-01 18:40] LABS: BASE EXCESS 0 mmol/l; Tco2 26.3 mmol/l; allen test SATISFACTORY; o2 21 %; puncture site RADIAL LEFT
[2023-10-01 18:41] LABS: SaO2 97.4 %
[2023-10-01 18:57] LABS: INR 1.09; PARTIAL THROMBOPLASTIN TIME 28.2 SECONDS (22.0-34.0); PROTHROMBIN TIME 11.4 SECONDS (9.0-11.5)
[2023-10-01 19:32] LABS: URINE APPEARANCE Cloudy; URINE BILIRRUBIN Negative (NEGATIVE); URINE BLOOD Negative; URINE COLOR Dark Yellow; URINE GLUCOSE Negative (NEGATIVE); URINE LEUKOCYTE Trace; URINE NITRATE Negative; URINE PROTEIN Negative (NEGATIVE); URINE UROBILINOGEN 0.2 E.U./dl
[2023-10-01 19:35] LABS: URINE BACTERIA 333.8 uL (0.0-1933); URINE EPITHELIAL CELLS 6.1 uL (0.0-38.8); URINE RBC 8.6 uL (0.0-20.8); URINE WBC 11.8 uL (0.0-23.2)
[2023-10-01] MEDS ORDERED: 0.9 % SODIUM CHLORIDE 1,000 ML IV SCH (22:30)
[2023-10-02] MEDS ORDERED: CEFTRIAXONE SODIUM 2,000 MG VIAL IV ONE (06:00)
[2023-10-02 07:04] LABS: HEMATOCRIT 30.9 % (39.0-48.0); HEMOGLOBIN 10.2 g/dL (13-16.00); MEAN CORPUSCULAR HEMOGLOBIN 29.8 pg (27.00-32.0); MEAN CORPUSCULAR HGB CONC 33.1 g/dl (32.0-36.0); PLATELET COUNT 283 K/uL (150-450); RED BLOOD COUNT 3.43 M/uL (4.00-6.00); RED CELL DISTRIBUTION WIDTH 19.4 % (11.5-14.5)
[2023-10-02 07:08] LABS: ALBUMIN 2.4 gm/dL (3.4-5.0); BILIRUBIN TOTAL 0.27 mg/dL (0.3-1.2); CALCIUM 8.1 mg/dL (8.5-10.1); CREATININE SERUM 0.66 mg/dL (0.70-1.30); GFR 118.31; GLOBULINA 3.5 G/DL (2.4-3.5); POTASSIUM 3.95 mEq/L (3.5-5.1); TOTAL PROTEIN 5.9 gm/dL (6.4-8.2)
[2023-10-02] MEDS ORDERED: 0.9 % SODIUM CHLORIDE 1,000 ML IV SCH (07:15)
[2023-10-02] MEDS ORDERED: LACTOBACILLUS ACIDOPHILUS 1 CAP CAP PO SCH (09:00)
[2023-10-02] MEDS ORDERED: AMINO ACIDS 1 EACH TABLET PO SCH (09:00)
[2023-10-02] MEDS ORDERED: PANTOPRAZOLE SODIUM 40 MG TABLET.DR PO SCH (09:00)
[2023-10-02] MEDS ORDERED: SOD FERRIC GLUC COMPLX/SUCROSE 62.5 MG/5 ML AMPUL IV SCH (09:44)
[2023-10-02] MEDS ORDERED: VITAMIN B COMPLEX 1 EACH PO SCH (09:44)
[2023-10-02] MEDS ORDERED: Cyanocobalamin/Mecobalamin 1 TAB.SL SL SCH (09:45)
[2023-10-02 10:15] LABS: ob POSITIVE (NEGATIVE)
[2023-10-02] MEDS ORDERED: LOPERAMIDE HCL 2 MG CAPSULE PO PRN (18:00)
[2023-10-02] MEDS ORDERED: METOPROLOL TARTRATE 25 MG TABLET PO SCH (20:00)
[2023-10-03] MEDS ORDERED: METOPROLOL TARTRATE 25 MG TABLET PO SCH (05:00)
[2023-10-03 06:28] LABS: HEMATOCRIT 31.5 % (39.0-48.0); INR 1.07; MEAN CELL VOLUME 91.2 fL (80.0-100.00); MEAN CORPUSCULAR HEMOGLOBIN 30.9 pg (27.00-32.0); MEAN CORPUSCULAR HGB CONC 33.9 g/dl (32.0-36.0); PARTIAL THROMBOPLASTIN TIME 31.1 SECONDS (22.0-34.0); PLATELET COUNT 294 K/uL (150-450); PROTHROMBIN TIME 11.2 SECONDS (9.0-11.5); RED BLOOD COUNT 3.46 M/uL (4.00-6.00); RED CELL DISTRIBUTION WIDTH 19.8 % (11.5-14.5)
[2023-10-03 06:30] LABS: HEMOGLOBIN 10.7 g/dL (13-16.00)
[2023-10-03 06:40] LABS: ERYTHROCYTE SEDIMENTATION RATE 41 mm/hr
[2023-10-03 07:11] LABS: COL EPI 131 SECONDS (82-175)
[2023-10-03 07:19] LABS: ALBUMIN 2.6 gm/dL (3.4-5.0); BILIRUBIN TOTAL 0.44 mg/dL (0.3-1.2); BILIRUBIN,CONJUGATED 0.11 mg/dL (0.0-0.2); BILIRUBIN,UNCONJUGATED 0.33 mg/dL (0.0-0.6); CALCIUM 8.5 mg/dL (8.5-10.1); CHOL HDL RATIO 2.5 (0-5.0); CREATININE SERUM 0.73 mg/dL (0.70-1.30); GFR 105.32; GLOBULINA 2.7 G/DL (2.4-3.5); MAGNESIUM 1.8 mg/dL (1.8-2.4); POTASSIUM 3.95 mEq/L (3.5-5.1); T4 FREE 0.95 NG/ML (0.76-1.46); TOTAL PROTEIN 5.3 gm/dL (6.4-8.2); TSH 1.27 uIU/mL (0.358-3.74)
[2023-10-03 07:21] LABS: C-REACTIVE PROTEIN 2.11 MG/DL (0.00-0.29)
[2023-10-03] MEDS ORDERED: METROnidazole 500 MG TABLET PO SCH (09:00)
[2023-10-03] MEDS ORDERED: CEFTRIAXONE SODIUM 2,000 MG in 0.9 % SODIUM CHLORIDE 100 ML IV SCH (09:00)
[2023-10-03 13:52] LABS: CKMB 2.8 NG/ML (0.5-3.6)
[2023-10-03] MEDS ORDERED: LOPERAMIDE HCL 2 MG CAPSULE PO PRN (18:02)
== END 2023-10-04 11:15 | disposition home or self-care (01) | DRG 871 ==
LOC: ER 17:05 → MEDI 10-02 07:18 → SEC-K 10-02 07:18 → MEDJ 10-02 13:35 → MEDI 10-02 14:03
PROVIDERS: Emergency Medicine; ADMIT Internal Medicine; ATTEND Internal Medicine
PROC: 4A12X4Z Monitoring of Cardiac Electrical Activity, External Approach (ICD-10-PCS; principal; 2023-10-02)
PROC: BR39YZZ Magnetic Resonance Imaging (MRI) of Lumbar Spine using Other Contrast (ICD-10-PCS; 2023-10-03)
PROC: B24BZZZ Ultrasonography of Heart with Aorta (ICD-10-PCS; 2023-10-03)
DX: A41.9 Sepsis, unspecified organism (principal); K68.19 Other retroperitoneal abscess; M46.28 Osteomyelitis of vertebra, sacral and sacrococcygeal region; E86.0 Dehydration; I95.9 Hypotension, unspecified; I35.0 Nonrheumatic aortic (valve) stenosis; D63.8 Anemia in other chronic diseases classified elsewhere; I11.9 Hypertensive heart disease without heart failure; I34.0 Nonrheumatic mitral (valve) insufficiency
CPT/HCPCS: 72149

== ENCOUNTER 2024-01-15 10:54 | Inpatient (IN) | payer OTHER ==
[~2024-01-15] VITALS: Ht 177.8 cm; Wt 60.3 kg
[2024-01-15] MEDS ORDERED: IMODIUM A-D2 MG PO (11:12)
--- NOTE | 2024-01-15 11:12 | NUR ---
PTE ALERTA Y ORIENTADO X3 EN COMPANIA DE FAMILIAR, REFIERE VENIR POR ORDEN DEL DR. BRETT RECINOS PARA TRASFUSION DE YRIS DEBIDO A HEMOGLOBINA EN 9.3 Y PRONTO RECIBIRA INTERVENCION QUIRURGICA. SE MIDEN SV Y SE UBICA.
[2024-01-15] MEDS ORDERED: 0.9 % SODIUM CHLORIDE 1,000 ML IV SCH ×2 (11:30→18:00)
--- NOTE | 2024-01-15 12:29 | NUR ---
PACIENTE EVALUADO POR MD KENNEYIEN ORDENA TRATAMIENTO MEDICO, SE LE ORIENTA A PACIENTE SOBRE EL MISMO Y VERBALIZA ENTENDER, SE LE COLECTAN MUESTRAS DE LABORATORIO Y SE CANALIZA BAJO MEDIDAS ASEPTICAS. SE ARI PERMISO DE TRANSFUCION, SE ADJUNTA A REACORD DE PACIENTE. SE RADHA TUBOS PILOTOS DE MARYBETH EN BANCO DE YRIS Y PACIENTE TIENE RECORD VIGENTE.
[2024-01-15 12:31] LABS: HEMOGLOBIN 8.3 g/dL (13-16.00); MEAN CELL VOLUME 88.1 fL (80.0-100.00); MEAN CORPUSCULAR HEMOGLOBIN 28.1 pg (27.00-32.0); PLATELET COUNT 372 K/uL (150-450); RED BLOOD COUNT 2.95 M/uL (4.00-6.00); RED CELL DISTRIBUTION WIDTH 19.8 % (11.5-14.5)
[2024-01-15 13:17] LABS: ALBUMIN 2.5 gm/dL (3.4-5.0); BILIRUBIN TOTAL 0.29 mg/dL (0.3-1.2); CALCIUM 8.6 mg/dL (8.5-10.1); CREATININE SERUM 0.79 mg/dL (0.70-1.30); GFR 96.14; GLOBULINA 4.2 G/DL (2.4-3.5); POTASSIUM 3.74 mEq/L (3.5-5.1); TOTAL PROTEIN 6.7 gm/dL (6.4-8.2)
[2024-01-15 13:21] LABS: PARTIAL THROMBOPLASTIN TIME 28.6 SECONDS (22.0-34.0); PROTHROMBIN TIME 10.1 SECONDS (9.0-11.5)
[2024-01-15] MEDS ORDERED: LOPERAMIDE HCL 2 MG CAPSULE PO SCH (18:03)
[2024-01-15] MEDS ORDERED: AMINO ACIDS/PROTEIN HYDROLYS 30 ML BLIST.PACK PO SCH (18:04)
[2024-01-15] MEDS ORDERED: LOPERAMIDE HCL 2 MG CAPSULE PO ONE (19:31)
[2024-01-15] MEDS ORDERED: ZOLPIDEM TARTRATE 10 MG TABLET PO SCH (21:00)
[2024-01-15] MEDS ORDERED: CHOLESTYRAMINE/ASPARTAME LIGHT 4 G/PKT PACKET PO SCH (21:00)
[2024-01-15] MEDS ORDERED: METOPROLOL SUCCINATE 25 MG TAB.SR.24H PO SCH (21:00)
[2024-01-15] MEDS ORDERED: ZOLPIDEM TARTRATE 5 MG TABLET PO SCH (21:15)
[2024-01-16] MEDS ORDERED: SOD FERRIC GLUC COMPLX/SUCROSE 62.5 MG in 0.9 % SODIUM CHLORIDE 50 ML IV SCH (09:00)
[2024-01-16] MEDS ORDERED: ATORVASTATIN CALCIUM 10 MG TABLET PO SCH (09:00)
[2024-01-16 10:37] LABS: URINE APPEARANCE Clear; URINE BILIRRUBIN Negative (NEGATIVE); URINE BLOOD Negative; URINE COLOR Yellow; URINE GLUCOSE Negative (NEGATIVE); URINE LEUKOCYTE Negative; URINE NITRATE Negative; URINE PROTEIN Negative (NEGATIVE); URINE UROBILINOGEN 0.2 E.U./dl
[2024-01-16 10:39] LABS: URINE EPITHELIAL CELLS 1.3 uL (0.0-38.8); URINE RBC 0.7 uL (0.0-20.8)
[2024-01-16 11:13] LABS: ob POSITIVE (NEGATIVE)
[2024-01-16] MEDS ORDERED: AMINO ACIDS/PROTEIN HYDROLYS 30 ML BLIST.PACK PO SCH (17:00)
[2024-01-16] MEDS ORDERED: CHOLESTYRAMINE/ASPARTAME LIGHT 4 G/PKT PACKET PO SCH (21:00)
[2024-01-17] MEDS ORDERED: CEFTRIAXONE SODIUM 2,000 MG VIAL IV ONE (15:00)
[2024-01-17] MEDS ORDERED: METRONIDAZOLE/SODIUM CHLORIDE 500 MG/100 ML PIGGYBACK IV ONE (15:00)
[2024-01-17] MEDS ORDERED: THROMBIN,HU/FIBRINOGEN/CALCIUM 10 ML SYRINGE TOP ONE (15:30)
[2024-01-17] MEDS ORDERED: VISTASEAL DUAL APPICATOR 1 EACH APPL TOP ONE (15:45)
[2024-01-17] MEDS ORDERED: HYOSCYAMINE SULFATE 0.125 MG TAB.SUBL SL SCH (17:00)
[2024-01-17] MEDS ORDERED: MORPHINE SULFATE 4 MG/ML CARTRIDGE IV PRN (17:00)
[2024-01-17] MEDS ORDERED: ONDANSETRON HCL 2 MG/ML VIAL IV PRN (17:00)
[2024-01-17] MEDS ORDERED: OxyCODONE HCL 5 MG TABLET (ROXICODONE) PO PRN (17:00)
[2024-01-17] MEDS ORDERED: RINGERS SOLUTION,LACTATED 1,000 ML IV SCH (17:00)
[2024-01-17] MEDS ORDERED: METOCLOPRAMIDE HCL 5 MG/ML VIAL IV SCH (17:00)
[2024-01-17] MEDS ORDERED: SIMETHICONE 125 MG CAPSULE PO SCH (17:00)
[2024-01-17] MEDS ORDERED: CELECOXIB 200 MG CAPSULE PO SCH (17:00)
[2024-01-17] MEDS ORDERED: POLYETHYLENE GLYCOL 3350 17 GM BLIST.PACK PO SCH (17:00)
[2024-01-17] MEDS ORDERED: GABAPENTIN 300 MG CAPSULE PO SCH (17:00)
[2024-01-17] MEDS ORDERED: ACETAMINOPHEN 500 MG GEL..CAP PO SCH (20:00)
[2024-01-17] MEDS ORDERED: FAMOTIDINE/PF 20 MG/2 ML VIAL IV PUSH SCH (21:00)
[2024-01-17 21:26] LABS: HEMATOCRIT 37.1 % (39.0-48.0); HEMOGLOBIN 11.8 g/dL (13-16.00); MEAN CELL VOLUME 86.6 fL (80.0-100.00); MEAN CORPUSCULAR HEMOGLOBIN 27.7 pg (27.00-32.0); MEAN CORPUSCULAR HGB CONC 31.9 g/dl (32.0-36.0); PLATELET COUNT 319 K/uL (150-450); RED BLOOD COUNT 4.28 M/uL (4.00-6.00); RED CELL DISTRIBUTION WIDTH 18.4 % (11.5-14.5)
[2024-01-17] MEDS ORDERED: CELECOXIB 200 MG CAPSULE PO ONE (23:20)
[2024-01-17] MEDS ORDERED: METOPROLOL SUCCINATE 25 MG TAB.SR.24H PO ONE (23:20)
[2024-01-18] MEDS ORDERED: GABAPENTIN 300 MG CAPSULE PO ONE (01:42)
[2024-01-18] MEDS ORDERED: METOCLOPRAMIDE HCL 5 MG/ML VIAL ONE (01:42)
[2024-01-18] MEDS ORDERED: ACETAMINOPHEN 500 MG GEL..CAP PO ONE (01:42)
[2024-01-18 07:56] LABS: MEAN CELL VOLUME 86.4 fL (80.0-100.00); MEAN CORPUSCULAR HEMOGLOBIN 28.8 pg (27.00-32.0); MEAN CORPUSCULAR HGB CONC 33.4 g/dl (32.0-36.0); PLATELET COUNT 325 K/uL (150-450); RED BLOOD COUNT 3.82 M/uL (4.00-6.00)
[2024-01-18] MEDS ORDERED: LACTULOSE 20 G/30 ML BLIST.PACK PO SCH (09:00)
[2024-01-18] MEDS ORDERED: LACTOBACILLUS ACIDOPHILUS 1 CAP CAP PO SCH (09:00)
[2024-01-18 09:10] LABS: BILIRUBIN TOTAL 0.68 mg/dL (0.3-1.2); CALCIUM 7.8 mg/dL (8.5-10.1); CALCIUM 7.9 mg/dL (8.5-10.1); CREATININE SERUM 0.57 mg/dL (0.70-1.30); CREATININE SERUM 0.61 mg/dL (0.70-1.30); GFR 129.57; GFR 140.12; GLOBULINA 2.7 G/DL (2.4-3.5); MAGNESIUM 1.5 mg/dL (1.8-2.4); PHOSPHOROUS 4.1 mg/dL (2.5-4.9); POTASSIUM 3.75 mEq/L (3.5-5.1); POTASSIUM 3.77 mEq/L (3.5-5.1); TOTAL PROTEIN 4.7 gm/dL (6.4-8.2)
[2024-01-18] MEDS ORDERED: MAGNESIUM SULFATE IN WATER 50 ML IV NR (12:00)
[2024-01-18] MEDS ORDERED: RINGERS SOLUTION,LACTATED 1,000 ML IV STA (12:01)
[2024-01-18] MEDS ORDERED: ENOXAPARIN SODIUM 40 MG/0.4 ML SYRINGE SUBCUTANEO SCH (17:00)
[2024-01-18] MEDS ORDERED: METOPROLOL TARTRATE 25 MG TABLET PO SCH (17:00)
[2024-01-19 06:27] LABS: HEMATOCRIT 34.2 % (39.0-48.0); HEMOGLOBIN 11.1 g/dL (13-16.00); MEAN CELL VOLUME 86.5 fL (80.0-100.00); MEAN CORPUSCULAR HEMOGLOBIN 27.9 pg (27.00-32.0); MEAN CORPUSCULAR HGB CONC 32.3 g/dl (32.0-36.0); PLATELET COUNT 350 K/uL (150-450); RED BLOOD COUNT 3.96 M/uL (4.00-6.00); RED CELL DISTRIBUTION WIDTH 18.2 % (11.5-14.5)
[2024-01-19 06:47] LABS: ERYTHROCYTE SEDIMENTATION RATE 48 mm/hr
[2024-01-19 07:18] LABS: ALBUMIN 1.9 gm/dL (3.4-5.0); BILIRUBIN TOTAL 0.73 mg/dL (0.3-1.2); CREATININE SERUM 0.58 mg/dL (0.70-1.30); GFR 137.33; GLOBULINA 2.6 G/DL (2.4-3.5); POTASSIUM 3.55 mEq/L (3.5-5.1); TOTAL PROTEIN 4.5 gm/dL (6.4-8.2)
[2024-01-19 07:27] LABS: C-REACTIVE PROTEIN 18.3 MG/DL (0.00-0.29)
[2024-01-19] MEDS ORDERED: ENOXAPARIN SODIUM 40 MG/0.4 ML SYRINGE SUBCUTANEO SCH (09:00)
[2024-01-19] MEDS ORDERED: MEROPENEM 500 MG/VIAL VIAL IV SCH (18:00)
== END 2024-01-20 14:49 | disposition home or self-care (01) | DRG 811 ==
LOC: ER 10:55 → MEDI 19:00 → SURG 01-17 19:06
PROVIDERS: Colon & Rectal Surgery; General Practice; Internal Medicine; Student in an Organized Health Care Education/Training Program; ADMIT Internal Medicine; ATTEND Internal Medicine
PROC: 30233N1 Transfusion of Nonautologous Red Blood Cells into Peripheral Vein, Percutaneous Approach (ICD-10-PCS; 2024-01-16)
PROC: 4A12X4Z Monitoring of Cardiac Electrical Activity, External Approach (ICD-10-PCS; principal; 2024-01-18)
DX: D64.89 Other specified anemias (principal); K68.19 Other retroperitoneal abscess; M86.8X8 Other osteomyelitis, other site; D50.8 Other iron deficiency anemias; I10 Essential (primary) hypertension; I35.0 Nonrheumatic aortic (valve) stenosis; Z85.038 Personal history of other malignant neoplasm of large intestine

== ENCOUNTER 2024-02-04 22:37 | Inpatient (IN) | payer OTHER ==
[~2024-02-04] VITALS: Ht 177.8 cm; Wt 59.0 kg
[2024-02-04 23:59] LABS: ABG PH 7.479 (7.35-7.45); ABG pCO2 29.3 mmHg (35-45)
[2024-02-05] VITALS (13 sets, daily range): BP systolic 81–103; BP diastolic 53–69; O2SAT 92–100
[2024-02-05] LABS: ABG PO2 108.5 mmHg (80-100); BICARBONATE 21.3 mmol/l (23-25); SaO2 98.6 %; Tco2 22.1 mmol/l; allen test SATISFACTORY; o2 32 %; puncture site RADIAL RIGHT
[2024-02-05 00:28] LABS: URINE APPEARANCE Turbid; URINE BILIRRUBIN Negative (NEGATIVE); URINE BLOOD Negative; URINE COLOR Yellow; URINE GLUCOSE Negative (NEGATIVE); URINE KETONE Trace (NEGATIVE); URINE LEUKOCYTE Negative; URINE NITRATE Negative; URINE PROTEIN Trace (NEGATIVE); URINE UROBILINOGEN 0.2 E.U./dl
[2024-02-05 00:31] LABS: INR 1.36; PARTIAL THROMBOPLASTIN TIME 33.3 SECONDS (22.0-34.0)
[2024-02-05 00:31] LABS: URINE BACTERIA 139.8 uL (0.0-1933); URINE CAST 2.28 uL (0.0-1.40); URINE EPITHELIAL CELLS 13.4 uL (0.0-38.8); URINE RBC 9.6 uL (0.0-20.8); URINE WBC 3.5 uL (0.0-23.2)
[2024-02-05 00:33] LABS: HEMOGLOBIN 9.2 g/dL (13-16.00); MEAN CELL VOLUME 83.2 fL (80.0-100.00); MEAN CORPUSCULAR HEMOGLOBIN 26.4 pg (27.00-32.0); MEAN CORPUSCULAR HGB CONC 31.8 g/dl (32.0-36.0); PLATELET COUNT 555 K/uL (150-450); RED BLOOD COUNT 3.49 M/uL (4.00-6.00); RED CELL DISTRIBUTION WIDTH 18.5 % (11.5-14.5)
[2024-02-05 00:37] LABS: ALBUMIN 1.9 gm/dL (3.4-5.0); BILIRUBIN TOTAL 0.78 mg/dL (0.3-1.2); CALCIUM 8.3 mg/dL (8.5-10.1); CREATININE SERUM 0.88 mg/dL (0.70-1.30); GFR 84.65; GLOBULINA 3.6 G/DL (2.4-3.5); POTASSIUM 4.33 mEq/L (3.5-5.1); TOTAL PROTEIN 5.5 gm/dL (6.4-8.2)
[2024-02-05] MEDS ORDERED: METRONIDAZOLE/SODIUM CHLORIDE 500 MG/100 ML PIGGYBACK IV SCH (01:14)
[2024-02-05] MEDS ORDERED: METRONIDAZOLE/SODIUM CHLORIDE 500 MG/100 ML PIGGYBACK IV STA (01:14)
[2024-02-05] MEDS ORDERED: CIPROFLOXACIN IN 5 % DEXTROSE 400 MG/200 ML PIGGYBAG IV SCH (01:14)
[2024-02-05] MEDS ORDERED: CIPROFLOXACIN IN 5 % DEXTROSE 400 MG/200 ML PIGGYBAG IV STA (01:14)
[2024-02-05] MEDS ORDERED: METRONIDAZOLE/SODIUM CHLORIDE 500 MG/100 ML PIGGYBACK IV ONE ×2 (01:37→08:47)
[2024-02-05] MEDS ORDERED: CIPROFLOXACIN IN 5 % DEXTROSE 400 MG/200 ML PIGGYBAG IV ONE ×2 (01:37→08:46)
[2024-02-05] MEDS ORDERED: 0.9 % SODIUM CHLORIDE 1,000 ML IV SCH (08:45)
[2024-02-05] MEDS ORDERED: GABAPENTIN 300 MG CAPSULE PO SCH (09:00)
[2024-02-05] MEDS ORDERED: SOD FERRIC GLUC COMPLX/SUCROSE 62.5 MG in 0.9 % SODIUM CHLORIDE 50 ML IV SCH (09:00)
[2024-02-05] MEDS ORDERED: LACTOBACILLUS ACIDOPHILUS 1 CAP CAP PO SCH (09:00)
[2024-02-05] MEDS ORDERED: CYANOCOBALAMIN (VITAMIN B-12) 1,000 MCG TABLET PO SCH (09:00)
[2024-02-05] MEDS ORDERED: AMINO ACIDS 1 EACH TABLET PO SCH (09:00)
[2024-02-05] MEDS ORDERED: ATORVASTATIN CALCIUM 20 MG TABLET PO SCH (09:00)
[2024-02-05] MEDS ORDERED: FOLIC ACID 1 MG TABLET PO SCH (09:00)
[2024-02-05] MEDS ORDERED: LOPERAMIDE HCL 2 MG CAPSULE PO SCH (09:00)
[2024-02-05] MEDS ORDERED: CHOLESTYRAMINE/ASPARTAME LIGHT 4 G/PKT PACKET PO SCH (09:00)
[2024-02-05] MEDS ORDERED: ENOXAPARIN SODIUM 60 MG/0.6 ML SYRINGE SUBCUTANEO SCH (09:14)
[2024-02-05] MEDS ORDERED: AMIODARONE HCL 50 MG/ML AMPUL IV ONE ×2 (09:15→09:20)
[2024-02-05] MEDS ORDERED: AMIODARONE IN DEXTROSE,ISO-OSM 360 MG/200 ML IV.SOLN IV ONE (09:20)
[2024-02-05] MEDS ORDERED: ADENOSINE 3 MG/ML VIAL IV ONE ×2 (10:15)
[2024-02-05] MEDS ORDERED: MIDAZOLAM HCL 2 MG/2 ML VIAL IV ONE (10:15)
[2024-02-05] MEDS ORDERED: MEROPENEM 1,000 MG VIAL IV SCH (10:42)
[2024-02-05] MEDS ORDERED: ENOXAPARIN SODIUM 60 MG/0.6 ML SYRINGE SUBCUTANEO ONE (11:34)
[2024-02-05] MEDS ORDERED: LOPERAMIDE HCL 2 MG CAPSULE PO ONE (11:34)
[2024-02-05] MEDS ORDERED: MEROPENEM 500 MG/VIAL VIAL IV SCH (18:00)
[2024-02-05] MEDS ORDERED: ZOLPIDEM TARTRATE 5 MG TABLET PO SCH (21:00)
[2024-02-06] VITALS (18 sets, daily range): BP systolic 81–110; BP diastolic 32–74; O2SAT 100
[2024-02-06 07:06] LABS: HEMATOCRIT 28.9 % (39.0-48.0); HEMOGLOBIN 9.5 g/dL (13-16.00); MEAN CELL VOLUME 83.7 fL (80.0-100.00); MEAN CORPUSCULAR HEMOGLOBIN 27.4 pg (27.00-32.0); MEAN CORPUSCULAR HGB CONC 32.7 g/dl (32.0-36.0); PLATELET COUNT 550 K/uL (150-450); RED BLOOD COUNT 3.45 M/uL (4.00-6.00); RED CELL DISTRIBUTION WIDTH 17.9 % (11.5-14.5)
[2024-02-06 07:09] LABS: INR 1.43; PARTIAL THROMBOPLASTIN TIME 36.5 SECONDS (22.0-34.0); PROTHROMBIN TIME 14.6 SECONDS (9.0-11.5)
[2024-02-06 07:12] LABS: URINE APPEARANCE Clear; URINE BILIRRUBIN Negative (NEGATIVE); URINE BLOOD Negative; URINE COLOR Yellow; URINE GLUCOSE Negative (NEGATIVE); URINE KETONE Trace (NEGATIVE); URINE LEUKOCYTE Negative; URINE NITRATE Negative; URINE PROTEIN Negative (NEGATIVE); URINE UROBILINOGEN 0.2 E.U./dl
[2024-02-06 07:15] LABS: URINE BACTERIA 37.7 uL (0.0-1933); URINE EPITHELIAL CELLS 14.3 uL (0.0-38.8)
[2024-02-06 07:20] LABS: ERYTHROCYTE SEDIMENTATION RATE 114 mm/hr
[2024-02-06 07:23] LABS: ob NEGATIVE (NEGATIVE)
[2024-02-06 07:45] LABS: COL EPI 109 SECONDS (82-175)
[2024-02-06 07:55] LABS: ALBUMIN 1.7 gm/dL (3.4-5.0); BILIRUBIN TOTAL 0.55 mg/dL (0.3-1.2); BILIRUBIN,CONJUGATED 0.27 mg/dL (0.0-0.2); BILIRUBIN,UNCONJUGATED 0.28 mg/dL (0.0-0.6); CALCIUM 8.2 mg/dL (8.5-10.1); CREATININE SERUM 0.56 mg/dL (0.70-1.30); GFR 142.62; MAGNESIUM 1.9 mg/dL (1.8-2.4); POTASSIUM 4.04 mEq/L (3.5-5.1); TOTAL PROTEIN 5.2 gm/dL (6.4-8.2); TSH 1.13 uIU/mL (0.358-3.74)
[2024-02-06 08:01] LABS: C-REACTIVE PROTEIN 20.3 MG/DL (0.00-0.29); CHOL HDL RATIO 5.2 (0-5.0); T4 FREE 1.64 NG/ML (0.76-1.46)
[2024-02-06] MEDS ORDERED: MAGNESIUM SULFATE/D5W 100 ML IV NR (09:12)
[2024-02-06] MEDS ORDERED: PANTOPRAZOLE SODIUM 40 MG/VIAL VIAL IV SCH (17:00)
[2024-02-06] MEDS ORDERED: AMIODARONE HCL 200 MG TABLET PO SCH (17:00)
[2024-02-06] MEDS ORDERED: AMINO ACIDS/PROTEIN HYDROLYS 30 ML BLIST.PACK PO SCH (17:00)
[2024-02-06] MEDS ORDERED: AA 5 %/CALCIUM/LYTES/DEXT 20 % 2,000 ML CENTRAL SCH (17:00)
[2024-02-06] MEDS ORDERED: fentaNYL CITRATE 50 MCG/ML AMPUL IV PUSH NR (18:30)
[2024-02-07 04:00] VITALS: BP 106/65; O2SAT 98
[2024-02-07 07:05] VITALS: BP 102/69; O2SAT 100
[2024-02-07 12:00] VITALS: BP 108/46; O2SAT 100
[2024-02-07 15:24] LABS: HEMATOCRIT 27.3 % (39.0-48.0); MEAN CELL VOLUME 83.8 fL (80.0-100.00); MEAN CORPUSCULAR HEMOGLOBIN 26.3 pg (27.00-32.0); MEAN CORPUSCULAR HGB CONC 31.4 g/dl (32.0-36.0); PLATELET COUNT 477 K/uL (150-450); RED BLOOD COUNT 3.26 M/uL (4.00-6.00); RED CELL DISTRIBUTION WIDTH 17.9 % (11.5-14.5)
[2024-02-07 15:30] LABS: HEMOGLOBIN 8.6 g/dL (13-16.00)
[2024-02-07 15:31] VITALS: O2SAT 100
[2024-02-07 15:33] LABS: CALCIUM 7.8 mg/dL (8.5-10.1); CREATININE SERUM 0.48 mg/dL (0.70-1.30); GFR 170.38; POTASSIUM 4.31 mEq/L (3.5-5.1)
[2024-02-07] MEDS ORDERED: AA 4.25%/CAL/LYTES/DEXT 5% 1,000 ML PERIFERAL SCH (17:00)
[2024-02-07] MEDS ORDERED: AMINO ACIDS 4.25 %/DEXTROSE 5% 1,000 ML PERIFERAL SCH (17:00)
[2024-02-07 20:00] VITALS: BP 99/56; O2SAT 100
[2024-02-07] MEDS ORDERED: VANCOMYCIN HCL 1,000 MG VIAL IV SCH (21:00)
[2024-02-07 23:04] VITALS: BP 99/56; O2SAT 100
[2024-02-08 06:47] VITALS: BP 107/69; O2SAT 100
[2024-02-08 07:15] VITALS: BP 110/69; O2SAT 100
[2024-02-08] MEDS ORDERED: FUROsemide 20 MG/2 ML VIAL IV SCH (08:45)
[2024-02-08] MEDS ORDERED: CHLORHEXIDINE GLUCONATE 120 ML BOTTLE TOP ONE (10:43)
[2024-02-08 12:00] VITALS: BP 102/89; O2SAT 100
[2024-02-08 15:03] VITALS: BP 93/66; O2SAT 98
[2024-02-08] MEDS ORDERED: METOPROLOL TARTRATE 25 MG TABLET PO SCH ×2 (17:00)
[2024-02-08 20:00] VITALS: BP 90/56; O2SAT 97
[2024-02-08 23:20] VITALS: BP 109/62; O2SAT 100
[2024-02-09 04:08] VITALS: BP 106/72; O2SAT 98
[2024-02-09 07:15] VITALS: BP 112/73; O2SAT 95
[2024-02-09 12:00] VITALS: BP 105/67; O2SAT 100
[2024-02-09 12:37] LABS: HEMATOCRIT 38.4 % (39.0-48.0); HEMOGLOBIN 12.7 g/dL (13-16.00); MEAN CELL VOLUME 83.4 fL (80.0-100.00); MEAN CORPUSCULAR HEMOGLOBIN 27.5 pg (27.00-32.0); PLATELET COUNT 473 K/uL (150-450); RED CELL DISTRIBUTION WIDTH 16.9 % (11.5-14.5)
[2024-02-09 13:08] LABS: ALBUMIN 1.8 gm/dL (3.4-5.0); BILIRUBIN TOTAL 0.48 mg/dL (0.3-1.2); CALCIUM 8.4 mg/dL (8.5-10.1); CREATININE SERUM 0.46 mg/dL (0.70-1.30); GFR 178.96; GLOBULINA 3.3 G/DL (2.4-3.5); MAGNESIUM 1.9 mg/dL (1.8-2.4); POTASSIUM 3.57 mEq/L (3.5-5.1); TOTAL PROTEIN 5.1 gm/dL (6.4-8.2)
[2024-02-09 15:19] VITALS: BP 89/54; O2SAT 100
[2024-02-09 20:04] VITALS: BP 91/61; O2SAT 99
[2024-02-09 20:36] VITALS: BP 103/63; O2SAT 99
[2024-02-10 00:38] VITALS: BP 84/54; O2SAT 98
[2024-02-10 08:00] VITALS: BP 122/67; O2SAT 98
[2024-02-10 14:22] VITALS: O2SAT 100
[2024-02-10 16:00] VITALS: BP 110/70; O2SAT 98
[2024-02-10 17:21] VITALS: O2SAT 90
[2024-02-10 21:21] VITALS: O2SAT 87
[2024-02-11] VITALS (9 sets, daily range): BP systolic 100–109; BP diastolic 57–74; O2SAT 90–99
[2024-02-11 20:24] LABS: ABG PH 7.423 (7.35-7.45); BASE EXCESS 0.1 mmol/l; BICARBONATE 24.2 mmol/l (23-25); SaO2 94.2 %; Tco2 25.4 mmol/l
[2024-02-11 20:54] LABS: allen test SATISFACTORY; o2 21 %; puncture site RADIAL RIGHT
[2024-02-12] VITALS (9 sets, daily range): BP systolic 117–140; BP diastolic 77–82; O2SAT 71–99
[2024-02-12 07:20] LABS: HEMOGLOBIN 13.4 g/dL (13-16.00); MEAN CELL VOLUME 85.9 fL (80.0-100.00); MEAN CORPUSCULAR HEMOGLOBIN 28.1 pg (27.00-32.0); MEAN CORPUSCULAR HGB CONC 32.8 g/dl (32.0-36.0); PLATELET COUNT 490 K/uL (150-450); RED BLOOD COUNT 4.78 M/uL (4.00-6.00); RED CELL DISTRIBUTION WIDTH 18.7 % (11.5-14.5)
[2024-02-12 07:45] LABS: BILIRUBIN TOTAL 0.51 mg/dL (0.3-1.2); CALCIUM 8.4 mg/dL (8.5-10.1); CREATININE SERUM 0.5 mg/dL (0.70-1.30); GFR 162.54; GLOBULINA 3.4 G/DL (2.4-3.5); MAGNESIUM 1.9 mg/dL (1.8-2.4); PHOSPHOROUS 2.4 mg/dL (2.5-4.9); POTASSIUM 4.12 mEq/L (3.5-5.1); TOTAL PROTEIN 5.4 gm/dL (6.4-8.2)
[2024-02-12] MEDS ORDERED: DIATRIZOATE MEGLUMINE, SODIUM 30 ML BOTTLE PO ONE (08:15)
[2024-02-12] MEDS ORDERED: FUROsemide 20 MG/2 ML VIAL IV SCH (09:00)
[2024-02-13] VITALS (7 sets, daily range): BP systolic 96–126; BP diastolic 58–80; O2SAT 79–100
[2024-02-13] MEDS ORDERED: DIATRIZOATE MEGLUMINE, SODIUM 30 ML BOTTLE PO NR (04:00)
[2024-02-13] MEDS ORDERED: AMIODARONE HCL 200 MG TABLET PO SCH (09:00)
[2024-02-13] MEDS ORDERED: LOPERAMIDE HCL 2 MG CAPSULE PO SCH (09:00)
[2024-02-14] VITALS: BP 90/50; O2SAT 95
[2024-02-14 04:51] VITALS: O2SAT 98
[2024-02-14 08:00] VITALS: BP 100/62; O2SAT 99
[2024-02-14] MEDS ORDERED: FUROsemide 20 MG/2 ML VIAL IV SCH (09:00)
[2024-02-14 09:23] VITALS: O2SAT 90
[2024-02-14 11:00] LABS: HEMATOCRIT 40.2 % (39.0-48.0); MEAN CELL VOLUME 85.8 fL (80.0-100.00); MEAN CORPUSCULAR HEMOGLOBIN 27.8 pg (27.00-32.0); MEAN CORPUSCULAR HGB CONC 32.4 g/dl (32.0-36.0); PLATELET COUNT 452 K/uL (150-450); RED BLOOD COUNT 4.69 M/uL (4.00-6.00)
[2024-02-14 11:55] LABS: BILIRUBIN TOTAL 0.37 mg/dL (0.3-1.2); CALCIUM 8.4 mg/dL (8.5-10.1); CHOL HDL RATIO 3.3 (0-5.0); CREATININE SERUM 0.64 mg/dL (0.70-1.30); GFR 122.25; GLOBULINA 3.5 G/DL (2.4-3.5); MAGNESIUM 1.8 mg/dL (1.8-2.4); POTASSIUM 4.14 mEq/L (3.5-5.1); TOTAL PROTEIN 5.5 gm/dL (6.4-8.2)
[2024-02-14 13:19] VITALS: O2SAT 67
[2024-02-14 16:00] VITALS: BP 108/66; O2SAT 97
[2024-02-15] VITALS (7 sets, daily range): BP systolic 104–119; BP diastolic 61–71; O2SAT 96–98
[2024-02-15] MEDS ORDERED: ZOLPIDEM TARTRATE 5 MG TABLET PO SCH (21:00)
[2024-02-16] VITALS (7 sets, daily range): BP systolic 99–125; BP diastolic 58–84; O2SAT 95–100
[2024-02-17] VITALS (8 sets, daily range): BP systolic 100–111; BP diastolic 59–63; O2SAT 88–100
[2024-02-18 00:36] VITALS: O2SAT 98
[2024-02-18 01:00] VITALS: BP 108/64; O2SAT 97
[2024-02-18 03:43] VITALS: O2SAT 100
[2024-02-18 08:07] VITALS: BP 137/71; O2SAT 99
[2024-02-18 08:49] LABS: CALCIUM 8.4 mg/dL (8.5-10.1); CREATININE SERUM 0.57 mg/dL (0.70-1.30); GFR 139.73; MAGNESIUM 2.1 mg/dL (1.8-2.4); PHOSPHOROUS 3.2 mg/dL (2.5-4.9); POTASSIUM 4.62 mEq/L (3.5-5.1)
[2024-02-18 08:52] LABS: HEMOGLOBIN 12.7 g/dL (13-16.00); MEAN CELL VOLUME 86.6 fL (80.0-100.00); MEAN CORPUSCULAR HEMOGLOBIN 27.6 pg (27.00-32.0); MEAN CORPUSCULAR HGB CONC 31.9 g/dl (32.0-36.0); PLATELET COUNT 372 K/uL (150-450); RED BLOOD COUNT 4.62 M/uL (4.00-6.00); RED CELL DISTRIBUTION WIDTH 19.1 % (11.5-14.5)
[2024-02-18 10:00] VITALS: O2SAT 87
[2024-02-18] MEDS ORDERED: BENZONATATE 100 MG CAPSULE PO PRN (10:00)
[2024-02-18 16:31] VITALS: BP 112/56; O2SAT 95
[2024-02-19] VITALS: BP 107/58; O2SAT 100
[2024-02-19 08:15] VITALS: BP 100/65; O2SAT 98
[2024-02-19 16:00] VITALS: BP 110/65; O2SAT 100
[2024-02-19] MEDS ORDERED: DIATRIZOATE MEGLUMINE, SODIUM 30 ML BOTTLE PO NR (17:00)
[2024-02-20] VITALS: BP 122/55; O2SAT 100
[2024-02-20 16:00] VITALS: BP 105/72; O2SAT 97
[2024-02-20] MEDS ORDERED: NYSTATIN 30 GM CREAM.GM. TOP SCH (17:00)
[2024-02-20] MEDS ORDERED: NYSTATIN 30 GM,SILVER SULFADIAZINE 50 GM,ZINC OXIDE 30 GM TOP SCH (17:00)
[2024-02-20] MEDS ORDERED: SILVER SULFADIAZINE 50 GM JAR TOP SCH (17:00)
[2024-02-20] MEDS ORDERED: ZINC OXIDE 30 GM TUBE TOP SCH (17:00)
[2024-02-21] VITALS: BP 120/67; O2SAT 100
[2024-02-21 08:00] VITALS: BP 107/61; O2SAT 97
[2024-02-21 12:23] LABS: HEMATOCRIT 38.6 % (39.0-48.0); HEMOGLOBIN 12.4 g/dL (13-16.00); MEAN CELL VOLUME 87.6 fL (80.0-100.00); MEAN CORPUSCULAR HEMOGLOBIN 28.2 pg (27.00-32.0); MEAN CORPUSCULAR HGB CONC 32.1 g/dl (32.0-36.0); PLATELET COUNT 336 K/uL (150-450); RED CELL DISTRIBUTION WIDTH 19.5 % (11.5-14.5)
[2024-02-21 13:02] LABS: ALBUMIN 2.4 gm/dL (3.4-5.0); BILIRUBIN TOTAL 0.38 mg/dL (0.3-1.2); CALCIUM 8.5 mg/dL (8.5-10.1); CREATININE SERUM 0.5 mg/dL (0.70-1.30); GFR 162.54; GLOBULINA 3.7 G/DL (2.4-3.5); POTASSIUM 4.34 mEq/L (3.5-5.1); TOTAL PROTEIN 6.1 gm/dL (6.4-8.2)
[2024-02-21 16:38] VITALS: BP 113/64; O2SAT 99
[2024-02-21] MEDS ORDERED: FUROsemide 20 MG TABLET PO SCH (17:00)
[2024-02-22 01:10] VITALS: BP 106/63; O2SAT 99
[2024-02-22 08:07] VITALS: BP 115/71; O2SAT 98
[2024-02-22 16:52] VITALS: BP 107/55; O2SAT 96
[2024-02-23 00:55] VITALS: BP 91/53; O2SAT 97
[2024-02-23 08:00] VITALS: BP 121/69; O2SAT 95
[2024-02-23 16:46] VITALS: BP 116/57; O2SAT 98
[2024-02-23] MEDS ORDERED: LOPERAMIDE HCL 2 MG CAPSULE PO STA (19:47)
[2024-02-24] VITALS: BP 96/64; O2SAT 98
[2024-02-24 04:00] VITALS: BP 96/60; O2SAT 98
[2024-02-24 08:00] VITALS: BP 115/61; O2SAT 100
[2024-02-24] MEDS ORDERED: LOPERAMIDE HCL 2 MG CAPSULE PO SCH (09:00)
[2024-02-24 16:00] VITALS: BP 118/53; O2SAT 100
[2024-02-25 00:35] VITALS: BP 91/60; O2SAT 95
[2024-02-25 08:00] VITALS: BP 114/63; O2SAT 98
[2024-02-25 08:02] LABS: HEMATOCRIT 36.4 % (39.0-48.0); HEMOGLOBIN 11.9 g/dL (13-16.00); MEAN CELL VOLUME 85.7 fL (80.0-100.00); MEAN CORPUSCULAR HGB CONC 32.7 g/dl (32.0-36.0); PLATELET COUNT 251 K/uL (150-450); RED BLOOD COUNT 4.25 M/uL (4.00-6.00); RED CELL DISTRIBUTION WIDTH 19.1 % (11.5-14.5)
[2024-02-25 08:19] LABS: ALBUMIN 2.4 gm/dL (3.4-5.0); BILIRUBIN TOTAL 0.45 mg/dL (0.3-1.2); CALCIUM 8.6 mg/dL (8.5-10.1); CREATININE SERUM 0.64 mg/dL (0.70-1.30); GFR 122.25; GLOBULINA 3.1 G/DL (2.4-3.5); MAGNESIUM 1.9 mg/dL (1.8-2.4); PHOSPHOROUS 3.4 mg/dL (2.5-4.9); POTASSIUM 4.72 mEq/L (3.5-5.1); TOTAL PROTEIN 5.5 gm/dL (6.4-8.2)
[2024-02-25] MEDS ORDERED: RINGERS SOLUTION,LACTATED 1,000 ML IV SCH (14:00)
[2024-02-25 16:00] VITALS: BP 138/73; O2SAT 95
[2024-02-25] MEDS ORDERED: FAMOTIDINE/PF 20 MG/2 ML VIAL IV SCH (17:00)
[2024-02-26 08:00] VITALS: BP 97/65; O2SAT 98
[2024-02-26] MEDS ORDERED: METOPROLOL SUCCINATE 25 MG TAB.SR.24H PO SCH (09:00)
[2024-02-26] MEDS ORDERED: AMIODARONE HCL 200 MG TABLET PO SCH (09:00)
[2024-02-26 16:45] VITALS: BP 111/71; O2SAT 98
[2024-02-27 00:21] VITALS: BP 100/58; O2SAT 95
[2024-02-27 08:47] VITALS: BP 103/56; O2SAT 100
[2024-02-27] MEDS ORDERED: DIATRIZOATE MEGLUMINE, SODIUM 30 ML BOTTLE PO NR (09:00)
[2024-02-27] MEDS ORDERED: DIATRIZOATE MEGLUMINE, SODIUM 30 ML BOTTLE PO ONE (09:15)
[2024-02-27 16:49] VITALS: BP 151/62; O2SAT 97
[2024-02-28 00:21] VITALS: BP 103/51; O2SAT 98
[2024-02-28 08:49] VITALS: BP 111/54; O2SAT 97
[2024-02-28] MEDS ORDERED: SOD FERRIC GLUC COMPLX/SUCROSE 62.5 MG/5 ML AMPUL IV SCH (11:11)
[2024-02-28 16:59] VITALS: BP 100/56; O2SAT 99
[2024-02-28] MEDS ORDERED: MIDAZOLAM HCL 2 MG/2 ML VIAL IV ONE (23:30)
[2024-02-28] MEDS ORDERED: fentaNYL CITRATE 50 MCG/ML AMPUL IV ONE (23:30)
[2024-02-29 01:23] VITALS: BP 101/59; O2SAT 97
[2024-02-29 08:51] VITALS: BP 110/57; O2SAT 100
[2024-02-29 16:59] VITALS: BP 83/50; O2SAT 98
[2024-03-01 00:41] VITALS: BP 105/69; O2SAT 95
[2024-03-01 08:00] VITALS: BP 106/65; O2SAT 96
[2024-03-01 13:10] LABS: HEMATOCRIT 36.6 % (39.0-48.0); HEMOGLOBIN 12.1 g/dL (13-16.00); MEAN CELL VOLUME 87.1 fL (80.0-100.00); MEAN CORPUSCULAR HEMOGLOBIN 28.8 pg (27.00-32.0); PLATELET COUNT 258 K/uL (150-450); RED CELL DISTRIBUTION WIDTH 20.2 % (11.5-14.5)
[2024-03-01 13:16] LABS: ERYTHROCYTE SEDIMENTATION RATE 61 mm/hr
[2024-03-01 13:52] LABS: ALBUMIN 2.8 gm/dL (3.4-5.0); BILIRUBIN TOTAL 0.4 mg/dL (0.3-1.2); CALCIUM 8.9 mg/dL (8.5-10.1); CREATININE SERUM 0.7 mg/dL (0.70-1.30); GFR 110.24; GLOBULINA 3.6 G/DL (2.4-3.5); MAGNESIUM 2.1 mg/dL (1.8-2.4); PHOSPHOROUS 3.5 mg/dL (2.5-4.9); POTASSIUM 4.93 mEq/L (3.5-5.1); TOTAL PROTEIN 6.4 gm/dL (6.4-8.2)
[2024-03-01 14:31] LABS: C-REACTIVE PROTEIN 1.18 MG/DL (0.00-0.29)
[2024-03-01 16:00] VITALS: BP 117/68; O2SAT 98
[2024-03-01] MEDS ORDERED: FAMOtidine 20 MG TABLET PO SCH (17:00)
[2024-03-01] MEDS ORDERED: ZOLPIDEM TARTRATE 5 MG TABLET PO SCH (21:00)
[2024-03-02 00:59] VITALS: BP 111/67; O2SAT 100
[2024-03-02 08:00] VITALS: BP 96/62; O2SAT 96
[2024-03-02 16:00] VITALS: BP 104/64; O2SAT 96
[2024-03-03 00:40] VITALS: BP 99/62; O2SAT 94
[2024-03-03 08:00] VITALS: BP 116/70; O2SAT 98
[2024-03-03 16:00] VITALS: BP 100/66; O2SAT 97
[2024-03-04 00:14] VITALS: BP 91/60; O2SAT 98
[2024-03-04 08:00] VITALS: BP 110/69; O2SAT 99
[2024-03-04 16:34] VITALS: BP 104/68; O2SAT 100
[2024-03-05] VITALS: BP 111/72; O2SAT 98
[2024-03-05 07:52] VITALS: BP 102/70; O2SAT 96
[2024-03-05 08:46] LABS: HEMATOCRIT 35.9 % (39.0-48.0); HEMOGLOBIN 12.1 g/dL (13-16.00); MEAN CELL VOLUME 87.3 fL (80.0-100.00); MEAN CORPUSCULAR HEMOGLOBIN 29.4 pg (27.00-32.0); MEAN CORPUSCULAR HGB CONC 33.6 g/dl (32.0-36.0); PLATELET COUNT 261 K/uL (150-450); RED BLOOD COUNT 4.11 M/uL (4.00-6.00); RED CELL DISTRIBUTION WIDTH 20.3 % (11.5-14.5)
[2024-03-05] MEDS ORDERED: MEROPENEM 500 MG/VIAL VIAL IV SCH (12:00)
[2024-03-05 16:28] VITALS: BP 111/67; O2SAT 98
[2024-03-06] VITALS: BP 111/73; O2SAT 94
[2024-03-06 08:00] VITALS: BP 97/62; O2SAT 97
[2024-03-07] VITALS: BP 109/61; O2SAT 98
[2024-03-07 08:00] VITALS: BP 112/68; O2SAT 97
[2024-03-07 18:09] VITALS: BP 100/60; O2SAT 100
[2024-03-08 00:48] VITALS: BP 107/69; O2SAT 100
[2024-03-08 08:00] VITALS: BP 95/63; O2SAT 100
[2024-03-08 16:16] VITALS: BP 100/55; O2SAT 98
[2024-03-09] VITALS: BP 123/79; O2SAT 96
[2024-03-09 16:00] VITALS: BP 104/70; O2SAT 99
[2024-03-10 00:28] VITALS: BP 105/66; O2SAT 97
[2024-03-10 08:19] LABS: HEMATOCRIT 33.3 % (39.0-48.0); HEMOGLOBIN 11.2 g/dL (13-16.00); MEAN CELL VOLUME 88.8 fL (80.0-100.00); MEAN CORPUSCULAR HEMOGLOBIN 29.9 pg (27.00-32.0); MEAN CORPUSCULAR HGB CONC 33.7 g/dl (32.0-36.0); PLATELET COUNT 200 K/uL (150-450); RED BLOOD COUNT 3.75 M/uL (4.00-6.00); RED CELL DISTRIBUTION WIDTH 21.4 % (11.5-14.5)
[2024-03-10 08:21] LABS: ALBUMIN 2.7 gm/dL (3.4-5.0); BILIRUBIN TOTAL 0.59 mg/dL (0.3-1.2); CALCIUM 8.8 mg/dL (8.5-10.1); CREATININE SERUM 0.74 mg/dL (0.70-1.30); GFR 103.39; PHOSPHOROUS 4.1 mg/dL (2.5-4.9); POTASSIUM 4.3 mEq/L (3.5-5.1); TOTAL PROTEIN 5.7 gm/dL (6.4-8.2)
[2024-03-10] MEDS ORDERED: LOPERAMIDE HCL 2 MG CAPSULE PO SCH (09:00)
[2024-03-10 09:15] VITALS: BP 95/57; O2SAT 98
[2024-03-10 16:56] VITALS: BP 101/68; O2SAT 98
[2024-03-10 17:06] VITALS: BP 101/68; O2SAT 98
[2024-03-11] VITALS: BP 102/67; O2SAT 98
[2024-03-11 08:57] VITALS: BP 95/59; O2SAT 96
[2024-03-11 16:00] VITALS: BP 101/54; O2SAT 97
[2024-03-12 02:11] VITALS: BP 107/57; O2SAT 100
[2024-03-12 08:58] VITALS: BP 118/63; O2SAT 98
[2024-03-12] MEDS ORDERED: LIPITOR20 MG PO (16:54)
[2024-03-12] MEDS ORDERED: CHOLESTYRAMINE L4 GM PO (16:54)
[2024-03-12] MEDS ORDERED: AMIODARONE HCL200 MG PO (16:54)
[2024-03-12] MEDS ORDERED: TOPROL XL25 M1 PO (16:55)
[2024-03-12] MEDS ORDERED: FUROSEMIDE20 MG PO (16:56)
[2024-03-12] MEDS ORDERED: ZOLPIDEM TARTRAT5 MG PO (16:56)
[2024-03-12] MEDS ORDERED: GABAPENTIN300 MG PO (16:56)
[2024-03-12] MEDS ORDERED: FOLIC ACID1 MG PO (16:57)
[2024-03-12] MEDS ORDERED: INTESTINEX680 M1 PO (16:57)
[2024-03-12] MEDS ORDERED: LOPERAMIDE2 MG PO (16:57)
[2024-03-12] MEDS ORDERED: PROTEINEX-18 LI30 ML PO (16:58)
[2024-03-12] MEDS ORDERED: VITAMIN B-121000 MCG PO (16:58)
[2024-03-12 17:46] VITALS: BP 102/55; O2SAT 100
== END 2024-03-12 19:59 | disposition home or self-care (01) | DRG 872 ==
LOC: ER 22:37 → ICU 02-05 09:25 → SEC-K 02-05 09:25 → ICU 02-05 12:42 → SURH 02-09 20:18
PROVIDERS: General Practice; Internal Medicine; Internal Medicine Hematology & Oncology; ADMIT Internal Medicine; ATTEND Internal Medicine
PROC: BW21YZZ Computerized Tomography (CT Scan) of Abdomen and Pelvis using Other Contrast (ICD-10-PCS; 2024-02-04)
PROC: 0H97X0Z Drainage of Abdomen Skin with Drainage Device, External Approach (ICD-10-PCS; principal; 2024-02-06)
PROC: 02HV33Z Insertion of Infusion Device into Superior Vena Cava, Percutaneous Approach (ICD-10-PCS; 2024-02-06)
PROC: B24BYZZ Ultrasonography of Heart with Aorta using Other Contrast (ICD-10-PCS; 2024-02-07)
PROC: 30243N1 Transfusion of Nonautologous Red Blood Cells into Central Vein, Percutaneous Approach (ICD-10-PCS; 2024-02-08)
PROC: BW21YZZ Computerized Tomography (CT Scan) of Abdomen and Pelvis using Other Contrast (ICD-10-PCS; 2024-02-13)
PROC: BW21YZZ Computerized Tomography (CT Scan) of Abdomen and Pelvis using Other Contrast (ICD-10-PCS; 2024-02-20)
PROC: BW21YZZ Computerized Tomography (CT Scan) of Abdomen and Pelvis using Other Contrast (ICD-10-PCS; 2024-02-27)
PROC: 4A12X4Z Monitoring of Cardiac Electrical Activity, External Approach (ICD-10-PCS; 2024-02-27)
PROC: 0H98X0Z Drainage of Buttock Skin with Drainage Device, External Approach (ICD-10-PCS; 2024-02-28)
PROC: BR39YZZ Magnetic Resonance Imaging (MRI) of Lumbar Spine using Other Contrast (ICD-10-PCS; 2024-03-06)
DX: A41.9 Sepsis, unspecified organism (principal); L02.211 Cutaneous abscess of abdominal wall; C18.9 Malignant neoplasm of colon, unspecified; I47.10 Supraventricular tachycardia, unspecified; I48.91 Unspecified atrial fibrillation; D64.9 Anemia, unspecified; D53.0 Protein deficiency anemia; I25.10 Atherosclerotic heart disease of native coronary artery without angina pectoris; I35.0 Nonrheumatic aortic (valve) stenosis; D72.829 Elevated white blood cell count, unspecified; I10 Essential (primary) hypertension
CPT/HCPCS: 72149

== ENCOUNTER 2025-01-09 08:00 | Outpatient (CLI) | payer OTHER ==
[2024-01-10 10:27] LABS: BASO % 0.50 % (0.0-1.50); EOS % 0.90 % (0.0-7.00); LYMPH % 5.80 % (12.0-44.0); MEAN CELL VOLUME 89.7 fL (80.0-100.00); MEAN PLATELET VOLUME 6.60 fl (7.20-11.1); MONO % 11.50 % (2.0-10.0); NEUT % 81.30 % (47.0-76.0)
[2024-01-10 10:28] LABS: RED CELL DISTRIBUTION WIDTH 21.4 % (11.5-14.5)
[2024-01-10 11:06] LABS: INR 1.01
[2024-01-10 11:21] LABS: ALT/SGPT 27.0 U/L (12-78); AST/SGOT 27.0 U/L (15-37); BILIRUBIN TOTAL 0.53 mg/dL (0.3-1.2); BUN CREA RATIO 18.0 (7.0-25.0); CREATININE SERUM 0.92 mg/dL (0.70-1.30); GFR 80.64; GLOBULINA 3.7 G/DL (2.4-3.5); GLUCOSE FASTING 101.0 mg/dL (65-100); OSMOLALITY SERUM 279.0 MOSM/KG (275-295)
[2024-01-10 11:52] LABS: URINE APPEARANCE Clear; URINE BILIRRUBIN Negative (NEGATIVE); URINE BLOOD Negative; URINE COLOR Yellow; URINE GLUCOSE Negative (NEGATIVE); URINE KETONE Negative (NEGATIVE); URINE LEUKOCYTE Negative; URINE NITRATE Negative; URINE PROTEIN Negative (NEGATIVE); URINE UROBILINOGEN 0.2 E.U./dl
[2024-01-10 11:56] LABS: URINE BACTERIA 10.0 uL (0.0-1933); URINE CAST 1.52 uL (0.0-1.40); URINE EPITHELIAL CELLS 4.4 uL (0.0-38.8); URINE RBC 6.4 uL (0.0-20.8); URINE WBC 3.2 uL (0.0-23.2)
[2024-01-10 12:14] LABS: URINE CRYSTALS MODERATE /HPF
[~2025-01-09] VITALS: Ht 177.8 cm; Wt 60.3 kg
[~2025-01-09 08:00] MED LIST changes: +AMIODARONE HCL200 MG PO; +CEFTRIAXONE SODIUM 2,000 MG VIAL ONE; +CHOLESTYRAMINE L4 GM PO; +FOLIC ACID1 MG PO; +FUROSEMIDE20 MG PO; +LOPERAMIDE2 MG PO; +METRONIDAZOLE/SODIUM CHLORIDE 500 MG/100 ML PIGGYBACK IV ONE; +THROMBIN,HU/FIBRINOGEN/CALCIUM 10 ML SYRINGE TOP ONE; +VISTASEAL DUAL APPICATOR 1 EACH APPL TOP ONE; +VITAMIN B-121000 MCG PO
== END 2025-01-09 08:01 | disposition home or self-care (01) ==
LOC: RAD 08:00
PROVIDERS: ATTEND Colon & Rectal Surgery
DX: C18.3 Malignant neoplasm of hepatic flexure (principal); C18.4 Malignant neoplasm of transverse colon; C19 Malignant neoplasm of rectosigmoid junction; C20 Malignant neoplasm of rectum; Z85.038 Personal history of other malignant neoplasm of large intestine; I10 Essential (primary) hypertension